=== PATIENT | female | born 1955 | race Caucasian/White ===

== ENCOUNTER 2023-08-29 10:21 | Emergency (ER) | payer MEDICARE, OTHER, SELFPAY ==
[2023-08-29 10:21] VITALS: BP 153/80; PULSE 77; RESP 16; TEMP 36; O2SAT 100; BMI 30.2
[2023-08-29 10:28] VITALS: BP 171/83; RESP 16; O2SAT 98
--- OUTSIDE RECORDS SUMMARY | 2023-08-29 10:35 | XMS RPT_ITS | CCD ---
Author Name Unknown Address [address] [place] [address] Organization [facility] Care Team Providers Care Evaluator Transfer Students Name Role Phone Jalen LOZANONLdBULMAROMolly Unavailable [phone] Tushar Caballero DO Primary Care Provider Tushar Caballero DO Primary Care Provider Tushar Caballero DO Primary Care Provider CAPLINGER SOLAR ENERGY SYSTEM INSTALLER~[id number], CAPXANDERER MEESHA P Att ending Unavailable CAPLINGER SOLAR ENERGY SYSTEM INSTALLER~[id number], CAPLISETTE MEESHA P Adm itting Unavailable MARTINEZ TUSHAR L Primary Care Unavailable TED FRY MD Consulting Unavailable [facility] ~[id number], [facility] Attending Unavailable [facility] ~[id number], [facility] Admitting Unavailable TUSHAR CABALLERO Primary Care Unavailable TED FRY MD Consulting Unavailable MARTINEZ, TUSHAR L Primary Care Unavailable ALESSANDRA LIMA Referring Unavailable MARTINEZ TUSHAR Carol Primary Care Unavailable ALESSANDRA LIMA Attending Unavailable TUSHAR CABALLERO Primary Care Unavailable TUSHAR CABALLERO Primary Care Unavailable NEHAL TOBIASON Attending Unavailable MARTINEZ TUSHAR L Primary Care Unavailable DENISE, NADEGE Referring Unavailable MARTINEZ TUSHAR L Primary Care Unavailable ALEKSANDR RHOADES Attending Unavailable TUSHAR CABALLERO Primary Care Unavailable ALEKSANDR RHOADES Referring Unavailable MARTINEZ, TUSHAR Carol Primary Care Unavailable ALEKSANDR RHOADES Attending Unavailable DENISE, NADEGE Referring Unavailable CABALLERO, TUSHAR L Primary Care Unavailable TOBIAS, NADEGE Referring Unavailable CABALLERO, TUSHAR L Primary Care Unavailable DENISE, NADEGE Attending Unavailable MARTINEZ, TUSHAR L Primary Care Unavailable MARTINEZ TUSHAR L Primary Care Unavailable MARTINEZ TUSHAR L Referring Unavailable Medications Current Medications Medication Drug Class(es) Dates Sig (Normalized) Sig (Original) iv contrast (will be provided with radiology test) (1 source) Start: 03-26-2023 End: 03-27-2023 iv contrast (will be provided with radiology test) CT Urogram WO/W Inject, intravenously, once for 1 dose.No IV access, insert saline lock prior to the beginning of sedation, infusion, injection of imaging exam. Discontinue saline lock post exam. If Pt. has a central line or IVAD, may access for administration according to line specific nursing protocol. Once exam is complete flush line and de-access according to line specific nursing protocol in the CT contrast administration guidelines link. 1 Each 0 03/26/2023 03/27/2023 Active Completed/Discontinued Medications Medication Drug Class(es) Dates Sig (Normalized) Sig (Original) amoxicillin 500 mg oral tablet (20 sources) Penicillin-class Antibacterial Start: 03-29-2019 take 4 tablets by mouth every hour AMOXICILLIN 500 MG TABS Take 4 tablets by mouth one hour prior to dental work AMOXICILLIN [id number] Molly Rao INTERNET CONSULTANT-SOLAR ENERGY SYSTEM INSTALLER Problems Active Problems Problem Classification Problem Date Documented Da te Episodic/Chronic Abdominal pain (1 source) Inguinal pain; Translations: [Right lower quadrant pain] 03-11-2023 Episodic Deficiency and other anemia (20 sources) Iron deficiency anemia; Translations: [Iron deficiency anemia, unspecified] 07-29-2021 Episodic Disorders of lipid metabolism (20 sources) Dyslipidemia; Translations: [Hyperlipidemia, unspecified] Onset: 05-22-2021 05-22-2021 Chronic Nutritional deficiencies (20 sources) Vitamin D deficiency; Translations: [Vitamin D deficiency, unspecified] Onset: 05-22-2021 05-22-2021 Chronic Osteoarthritis (20 sources) Degenerative joint disease involving multiple joints; Translations: [Polyosteoarthritis , unspecified] Onset: 07-06-2023 11-13-2011 Chronic Other aftercare (1 source) Other parts counterman (current) drug therapy; Translations: [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] Onset: 07-06-2023 Episodic Other connective tissue disease (20 sources) History of total hip arthroplasty; Translations: [Presence of right artificial hip joint] Onset: 08-07-2016 08-07-2016 Chronic Other connective tissue disease (2 sources) Heel pain; Translations: [Pain in left foot] Episodic Other connective tissue disease (1 source) Plantar fasciitis of left foot; Translations: [Plantar fascial fibromatosis] Episodic Other connective tissue disease (1 source) Plantar fasciitis; Translations: [Plantar fascial fibromatosis] 03-11-2023 Episodic Other nervous system disorders (2 sources) Paresthesia of lower extremity; Translations: [Anesthesia of skin] Episodic Other screening for suspected conditions (not mental disorders or infectious disease) (6 sources) Patient encounter status; Translations: [Encounter for screening mammogram for malignant neoplasm of breast] Onset: 04-29-2023 Episodic Prolapse of female genital organs (3 sources) Disorder of rectum; Translations: [Rectocele] Onset: 07-06-2023 04-20-2023 Chronic Thyroid disorders (20 sources) Non-toxic multinodular goiter; Translations: [Nontoxic multinodular goiter] Onset: 11-28-2011 11-28-2011 Chronic Past or Other Problems Problem Classification Problem Date Documented Date Episodic/Chronic Allergic reactions (20 sources) Contact dermatitis; Translations: [Unspecified contact dermatitis, unspecified cause] Onset: 03-08-2008 03-08-2008 Episodic Calculus of urinary tract (20 sources) Kidney stone; Translations: [Calculus of kidney] Onset: 08-22-2008 08-22-2008 Episodic Diabetes mellitus without complication (20 sources) Prediabetes; Translations: [Prediabetes] Onset: 06-10-2019 06-10-2019 Episodic Genitourinary symptoms and ill-defined conditions (20 sources) Microscopic hematuria; Translations: [Other microscopic hematuria] Onset: 06-06-2008 06-06-2008 Episodic Other connective tissue disease (1 source) Calcific tendinitis of shoulder; Translations: [Calcific tendinitis of right shoulder] Onset: 03-29-2019 03-29-2019 Episodic Other connective tissue disease (20 sources) Trochanteric bursitis of right hip; Translations: [Trochanteric bursitis, right hip] Onset: 06-12-2020 06-12-2020 Episodic Other nutritional; endocrine; and metabolic disorders (20 sources) H/O: nutritional disorder; Translations: [Personal history of other endocrine, nutritional and metabolic disease] Onset: 05-22-2021 05-22-2021 Episodic Residual codes; unclassified (20 sources) Postmenopausal state; Translations: [Asymptomatic menopausal state] Onset: 11-12-2018 11-12-2018 Episodic Unclassified (1 source) Problem Urinary tract infections (20 sources) Urethritis; Translations: [Other urethritis] Onset: 08-22-2008 08-22-2008 Episodic Results Test Name Value Interpretation Reference Range Facil ity Vital Signs Date Time Vital Sign Value Performing Clinician Facility 04-20-2023 09:27-0400 Body height 166.4 cm Aleksandr Rhoades MD Work Phone: [facility] 04-20-2023 09:27-0400 Body weight 78.47 kg Aleksandr Rhoades MD Work Phone: [facility] 04-20-2023 09:27-0400 Diastolic blood pressure 78 mm[Hg] Aleksandr Rhoades MD Work Phone: [facility] 04-20-2023 09:27-0400 Heart rate 83 /min Aleksandr Rhoades MD Work Phone: [facility] 04-20-2023 09:27-0400 Respiratory rate 18 /min Aleksandr Rhoades MD Work Phone: [facility] 04-20-2023 09:27-0400 Systolic blood pressure 114 mm[Hg] Aleksandr Rhoades MD Work Phone: [facility] 03-26-2023 13:32-0400 Body height 166.4 cm Aleksandr Rhoades MD Work Phone: [facility] 03-26-2023 13:32-0400 Body weight 78.02 kg Aleksandr Rhoades MD Work Phone: [facility] 03-11-2023 14:45-0400 Body height 167 cm Nadege Tobias INTERNET CONSULTANT.SOLAR ENERGY SYSTEM INSTALLER Work Phone: [facility] 03-11-2023 14:45-0400 Body weight 77.38 kg Nadege Tobias INTERNET CONSULTANT.SOLAR ENERGY SYSTEM INSTALLER Work Phone: [facility] 03-11-2023 14:45-0400 Diastolic blood pressure 60 mm[Hg] Nadege Tobias INTERNET CONSULTANT.SOLAR ENERGY SYSTEM INSTALLER Work Phone: [facility] 03-11-2023 14:45-0400 Heart rate 80 /min Nadege Tobias INTERNET CONSULTANT.SOLAR ENERGY SYSTEM INSTALLER Work Phone: [facility] 03-11-2023 14:45-0400 Respiratory rate 14 /min Nadege Tobias INTERNET CONSULTANT.SOLAR ENERGY SYSTEM INSTALLER Work Phone: [facility] 03-11-2023 14:45-0400 Systolic blood pressure 104 mm[Hg] Nadege Tobias INTERNET CONSULTANT.SOLAR ENERGY SYSTEM INSTALLER Work Phone: [facility] 02-19-2023 09:57-0400 Body weight 77.56 kg Alessandra Tannhof INTERNET CONSULTANT.SOLAR ENERGY SYSTEM INSTALLER Work Phone: [facility] 02-19-2023 09:57-0400 Diastolic blood pressure 58 mm[Hg] Alessandra Tannhof INTERNET CONSULTANT.SOLAR ENERGY SYSTEM INSTALLER Work Phone: [facility] 02-19-2023 09:57-0400 Heart rate 84 /min Alessandra Tannhof INTERNET CONSULTANT.SOLAR ENERGY SYSTEM INSTALLER Work Phone: [facility] 02-19-2023 09:57-0400 Respiratory rate 16 /min Alessandra Tannhof INTERNET CONSULTANT.SOLAR ENERGY SYSTEM INSTALLER Work Phone: [facility] 02-19-2023 09:57-0400 SaO2% (BldA) [Mass fraction] 97 % Alessandra Tannhof INTERNET CONSULTANT.SOLAR ENERGY SYSTEM INSTALLER Work Phone: [facility] 02-19-2023 09:57-0400 Systolic blood pressure 108 mm[Hg] Alessandra Tannhof INTERNET CONSULTANT.SOLAR ENERGY SYSTEM INSTALLER Work Phone: [facility] 01-26-2023 07:23-0400 Body temperature 97 [degF] Maine Cerrato INTERNET CONSULTANT.SOLAR ENERGY SYSTEM INSTALLER Work Phone: [facility] 01-26-2023 07:23-0400 Body weight 77.29 kg Maine Cerrato INTERNET CONSULTANT.SOLAR ENERGY SYSTEM INSTALLER Work Phone: [facility] 01-26-2023 07:23-0400 Diastolic blood pressure 72 mm[Hg] Maine Cerrato INTERNET CONSULTANT.SOLAR ENERGY SYSTEM INSTALLER Work Phone: [facility] 01-26-2023 07:23-0400 Heart rate 83 /min Maine Cerrato INTERNET CONSULTANT.SOLAR ENERGY SYSTEM INSTALLER Work Phone: [facility] 01-26-2023 07:23-0400 Respiratory rate 21 /min Maine Cerrato INTERNET CONSULTANT.SOLAR ENERGY SYSTEM INSTALLER Work Phone: [facility] 01-26-2023 07:23-0400 SaO2% (BldA) [Mass fraction] 98 % Maine Cerrato INTERNET CONSULTANT.SOLAR ENERGY SYSTEM INSTALLER Work Phone: [facility] 01-26-2023 07:23-0400 Systolic blood pressure 116 mm[Hg] Maine Cerrato INTERNET CONSULTANT.SOLAR ENERGY SYSTEM INSTALLER Work Phone: [facility] 01-20-2023 16:14-0400 Body temperature 97.5 [degF] Hilary Athy PA-C Work Phone: [facility] 01-20-2023 16:14-0400 Body weight 77.56 kg Hilary Athy PA-C Work Phone: [facility] 01-20-2023 16:14-0400 Diastolic blood pressure 86 mm[Hg] Hilary Athy PA-C Work Phone: [facility] 01-20-2023 16:14-0400 Heart rate 78 /min Hilary Athy PA-C Work Phone: [facility] 01-20-2023 16:14-0400 Respiratory rate 14 /min Hilary Athy PA-C Work Phone: [facility] 01-20-2023 16:14-0400 Systolic blood pressure 134 mm[Hg] Hilary Athy PA-C Work Phone: [facility] NEGATED: Highlighted [id number] 11:24-0400 BMI (Body Mass Index) 26.55 kg/m2 Desire Luis CENTERLESS GRINDER [facility] Work Phone: NEGATED: Highlighted [id number] 11:24-0400 Body weight 72.12 kg Desire Luis CENTERLESS GRINDER [facility] Work Phone: NEGATED: Highlighted [id number] 11:24-0400 Body weight 72 kg Desire Luis CENTERLESS GRINDER [facility] Work Phone: NEGATED: Highlighted [id number] 11:24-0400 BP Diastolic 73 mm[Hg] Desire Luis CENTERLESS GRINDER [facility] Work Phone: NEGATED: Highlighted [id number] 11:24-0400 BP Systolic 139 mm[Hg] Desire Luis CENTERLESS GRINDER [facility] Work Phone: NEGATED: Highlighted [id number] 11:24-0400 Height 165.1 cm Desire Luis CENTERLESS GRINDER [facility] Work Phone: NEGATED: Highlighted [id number] 11:24-0400 Height 165 cm Desire Luis CENTERLESS GRINDER [facility] Work Phone: NEGATED: Highlighted [id number] 11:24-0400 Pulse (Heart Rate) 76 /min Desire Luis CENTERLESS GRINDER [facility] Work Phone: Encounters Encounter Date Encounter Type Care Provider Facility Start: 07-20-2023 End: 07-20-2023 ambulatory NADEGE TOBIAS Facility:[facility] Start: 07-20-2023 End: 07-20-2023 Patient encounter procedure Nadege Tobias APRN.SOLAR ENERGY SYSTEM INSTALLER Work Phone: [facility] Procedures Date Procedure Procedure Detail Performing Clinician Start: 07-20-2023 INFLUENZA VACCINE, P RSV FREE, AGE 65+ YR, HIGH DOSE, QUADRIVALENT (FLUZONE HIGH-DOSE) Nadege Tobias APRN.SOLAR ENERGY SYSTEM INSTALLER Work Phone: Start: 04-29-2023 Screening mammograph y bi 2-view breast inc cad Nadege Tobias APRN.SOLAR ENERGY SYSTEM INSTALLER Work Phone: Start: 04-20-2023 Urnls dip stick/tabl et rgnt auto w/o microscopy Aleksandr Rhoades MD Work Phone: Start: 04-01-2023 Ct abdomen & pelvis w/o contrst 1/> body re Aleksandr Rhoades MD Work Phone: Start: 03-26-2023 Urnls dip stick/tabl et rgnt auto w/o microscopy Aleksandr Rhoades MD Work Phone: Start: 03-07-2023 Lipid 1996 panel - S yael or Plasma Aleksandr Rhoades MD Work Phone: Start: 02-19-2023 Urnls dip stick/tabl et rgnt auto w/o microscopy Alessandra Lima INTERNET CONSULTANT.SOLAR ENERGY SYSTEM INSTALLER Work Phone: Start: 01-26-2023 Urnls dip stick/tabl et rgnt auto w/o microscopy [facility] Provider Start: 01-20-2023 Urnls dip stick/tabl et rgnt auto w/o microscopy Oumou Rich INTERNET CONSULTANT.SOLAR ENERGY SYSTEM INSTALLER Work Phone: Start: 04-14-2022 MORA SCREENING W RENEA Medina Martinez DO Work Phone: Start: 04-14-2022 Mammography Screen Wst r Start: 05-19-2021 Adult depression screening assessment Tushar Caballero DO Work Phone: Start: 04-10-2021 Mammography Tushar Chester risrose marie DO Work Phone: Start: 03-29-2019 End: 03-29-2019 Arthrocentesis aspir&/inj major jt/bursa w/o us Molly Rao APRN-SOLAR ENERGY SYSTEM INSTALLER Work Phone: Start: 03-29-2019 End: 03-29-2019 Blood pressure within normal parameters - no follow-up required Molly Rao INTERNET CONSULTANT-SOLAR ENERGY SYSTEM INSTALLER Work Phone: Start: 03-29-2019 End: 03-29-2019 BMI outside of normal parameters - no follow-up plan/reason not given Molly Rao INTERNET CONSULTANT-SOLAR ENERGY SYSTEM INSTALLER Work Phone: Start: 03-29-2019 End: 03-29-2019 Documentation of current medications Molly Rao INTERNET CONSULTANT-SOLAR ENERGY SYSTEM INSTALLER Work Phone: Start: 03-29-2019 End: 03-29-2019 Injection - triamcinolone acetonide 10 mg Molly Rao INTERNET CONSULTANT-SOLAR ENERGY SYSTEM INSTALLER Work Phone: Start: 03-29-2019 End: 03-29-2019 Pain assessment documented as positive - no follow-up/reason not given Molly Rao INTERNET CONSULTANT-SOLAR ENERGY SYSTEM INSTALLER Work Phone: Start: 03-29-2019 End: 03-29-2019 Tobacco non-user Molly Rao INTERNET CONSULTANT-SOLAR ENERGY SYSTEM INSTALLER Work Phone: Start: 10-07-2018 Colonoscopy Tushar boston DO Work Phone: NEGATED: Highlighted rowStart: 03-29-2019 End: 03-29-2019 Documentation of current medications Desire Luis CENTERLESS GRINDER Plan of Treatment Date Care Activity Detail Author Start: 05-17-2030 Urine microalbumin profile [facility] Start: 10-07-2028 Colonoscopy COLONOSCOPY [facility] Start: 10-07-2028 COLORECTAL CANCER SCREENING COLORECTAL CANCER SCREENING [facility] Start: 10-07-2028 Screening for malign ant neoplasm of colon [facility] Start: 03-07-2028 Lipid 1996 panel - S yael or Plasma Lipid Screening [facility] Start: 03-07-2028 Lipid panel Lipid Screening [facility] Start: 03-07-2028 LIPID SCREEN LIPID SCREEN [facility] Start: 10-25-2026 LIPID SCREEN LIPID SCREEN [facility] Start: 05-20-2026 LIPID SCREEN LIPID SCREEN [facility] Start: 03-06-2026 DIABETES SCREEN DIABETES SCREEN [facility] Start: 03-06-2026 Diabetes Screening Diabetes Screenin g [facility] Start: 10-25-2024 DIABETES SCREEN DIABETES SCREEN [facility] Start: 07-20-2024 Annual PCP Team Analog Ic Design Architect akira Disease Visit Annual PCP Team Chronic Disease Visit [facility] Start: 05-20-2024 DIABETES SCREEN DIABETES SCREEN [facility] Start: 04-29-2024 Mammography Mammogram Screening [facility] Start: 04-29-2024 Screening for malign ant neoplasm of breast Mammogram Screening [facility] Start: 08-09-2024 ANNUAL PCP TEAM SPORTS CENTRE MANAGER AKIRA DISEASE VISIT ANNUAL PCP TEAM CHRONIC DISEASE VISIT [facility] Start: 03-11-2024 COVID-19 VACCINE (4 - Pfizer series) COVID-19 VACCINE (4 - Pfizer series) [facility] Immunizations Immunization Date Immunization Notes Care Provider Anshul azevedo 07-20-2023 influenza (HD-IIV4) vaccine, age 65+ yr, high dose, quadrivalent, PF (FLUZONE HIGH-DOSE) Nadege Tobias INTERNET CONSULTANT.SOLAR ENERGY SYSTEM INSTALLER Work Phone: [facility] 08-24-2021 COVID-19 vaccine, ag e 12+ yr (PFIZER-BIONTECH - PURPLE TOP) Tushar Chesterrison DO Work Phone: [facility] 05-20-2021 influenza, high-dose , quadrivalent vaccine (FLUZONE HIGH DOSE QUADRIVALENT) Tushar Chesterrison DO Work Phone: [facility] Work Phone: 05-20-2021 influenza virus vacc ine, unspecified formulation Aleksandr Rhoades MD Work Phone: [facility] 11-22-2020 COVID-19 vaccine, ag e 12+ yr (PFIZER-BIONTECH - PURPLE TOP) Tushar Caballero DO Work Phone: [facility] 11-01-2020 COVID-19 vaccine, ag e 12+ yr (PFIZER-BIONTECH - PURPLE TOP) Tushar Caballero DO Work Phone: [facility] Work Phone: 08-09-2020 zoster vaccine recombinant Tushar Caballero DO Work Phone: [facility] Work Phone: 05-17-2020 influenza, injectabl e, quadrivalent, contains preservative Tushar Caballero DO Work Phone: [facility] Work Phone: 05-17-2020 pneumococcal polysaccharide vaccine, 23 valent Tushar Caballero DO Work Phone: [facility] Work Phone: 05-17-2020 tetanus toxoid, redu melissa diphtheria toxoid, and acellular pertussis vaccine, adsorbed Tushar Caballero DO Work Phone: [facility] Work Phone: 05-17-2020 zoster vaccine recombinant Tushar Caballero DO Work Phone: [facility] Work Phone: 06-08-2019 influenza, high dose seasonal, preservative-free Tushar Caballero DO Work Phone: [facility] 11-12-2018 pneumococcal conjuga te vaccine, 13 valent Tushar Caballero DO Work Phone: [facility] Work Phone: 05-22-2018 influenza, seasonal, injectable Tushar Caballero DO Work Phone: [facility] 05-20-2017 influenza, seasonal, injectable Tushar Caballero DO Work Phone: [facility] Work Phone: 07-08-2016 tetanus toxoid, redu melissa diphtheria toxoid, and acellular pertussis vaccine, adsorbed Tushar Caballero DO Work Phone: [facility] 07-17-2015 influenza, injectabl e, quadrivalent, contains preservative Tushar Caballero DO Work Phone: [facility] Work Phone: 08-04-2014 zoster vaccine, live Tushar Caballero DO Work Phone: [facility] 07-16-2012 influenza virus vacc ine, unspecified formulation Tushar Caballero DO Work Phone: [facility] 06-04-2010 influenza virus vacc ine, unspecified formulation Tushar Caballero DO Work Phone: [facility] Work Phone: 06-06-2008 influenza virus vacc ine, unspecified formulation Tushar Caballero DO Work Phone: [facility] 06-01-2006 influenza virus vacc ine, unspecified formulation Tushar Caballero DO Work Phone: [facility] Work Phone: 06-01-2006 pneumococcal polysaccharide vaccine, 23 valent Tushar Caballero DO Work Phone: [facility] Work Phone: 06-01-2006 tetanus toxoid, redu melissa diphtheria toxoid, and acellular pertussis vaccine, adsorbed Tushar Caballero DO Work Phone: [facility] Work Phone: Payers Date Payer Category Payer Medicare MEDICARE MEDICAR E A AND B [id number] 2018-Present [phone] [place] [address] Medicare [id number] 2018 Medicare MEDICARE MEDICAR E A AND B [id number] 2018-Present [phone] [place] [address] Medicare [id number] 2018 Unknown [id number] 2010 Unknown [id number] 1959 Medicare [id number] 1961 Medicare [id number] 1953 Unknown [id number] 1955 Unknown [id number] Social History Date Type Detail Facility Start: 11-17-2011 Tobacco smoking stat [facility] Never smoked tobacco [facility] Start: 05-20-2021 End: 04-20-2023 Alcohol intake Current non-drinker of alcohol (finding) [facility] Start: 05-19-2021 End: 10-25-2021 History SDOH Alcohol Frequency 1 [facility] Start: 05-19-2021 History SDOH Alcohol Std Drinks 98 [facility] Start: 05-19-2021 History SDOH Social Connections Phone 5 [facility] Start: 05-19-2021 End: 10-25-2021 History SDOH Social Connections Get Together 2 [facility] Start: 05-19-2021 History SDOH Social Connections [facility] 3 [facility] Start: 05-19-2021 History SDOH Physica l Activity MPS 7 [facility] Start: 05-19-2021 Education 15 [facility] Start: 1955 Sex Assigned At Female C [facility] Start: 10-15-2021 End: 01-27-2022 Exposure to SARS-CoV-2 (event) Not sure [facility] Start: 11-17-2011 Tobacco use and exposure Smokeless tobacco non-user [facility] Start: 02-18-2023 End: 03-11-2023 History of Social function [facility] Start: 02-18-2023 End: 03-11-2023 Social connection and isolation panel [facility] Do you belong to any clubs or organizations such as roman catholic groups, unions, fraternal or athletic groups, or school groups? Yes [facility] Are you now , , , , never or living with a partner? [facility] How often to you hav e a drink containing alcohol? Never [facility] How many standard drinks containing alcohol do you have on a typical day? Patient does not drink [facility] Do you feel stress - tense, restless, nervous, or anxious, or unable to sleep at night because your mind is troubled all the time - these days [OSQ] Only a little [facility] (I/We) worried kelin er (my/our) food would run out before (I/we) got money to buy more. Never true [facility] In the past 12 month s, was there a time when you were not able to pay the mortgage or rent on time? No [facility] Start: 06-10-2019 Gender identity Identifies as female gender (finding) [facility] NEGATED: Highlighted rowStart: 03-29-2019 End: 03-29-2019 Assertion Never smoker [facility] Work Phone: Medical Equipment Procedure Code Equipment Code Equipment Origin al Text Equipment Identifier Dates Shell 54mm E Hemispherical Tritanium Acetabular Solid Back Primary - [id number] Start: 06-02-2016 Head V40 32mm 0m m Offset Taper Biolox Delta Femoral Hip - [id number] Start: 06-02-2016 Liner 32mm 0d E X3 7.9mm Acetabular Hip - [id number] Start: 06-02-2016 Stem Accolade Ii 4 127d Femoral - [id number] Start: 06-02-2016 Clinical Notes 06-02-2016 to 04-30-2023 Letter - Coordinator, Mammography - 04/30/2023 9:54 AM Piedad Londono Mammo Tech - 04/29/2023 10:10 AM Janny Horn LPN - 04/20/2023 11:20 AM EDTPatient InstructionsPatient Instructions Note Date & Type Note Facility 04-30-2023 Miscellaneous Notes April 30, 2023 PID: [id number] Alfreda Padgett [address] [place] [address] Dear Ms. Padgett, We are pleased to inform you that the results of your recent breast imaging exam on 04/29/2023 are normal. Early detection of cancer is very important. We also understand recommendations regarding breast cancer screening are controversial. Please discuss with your primary care provider which strategy is best for you and whether a mammogram is right for you. Your imaging studies and report will be kept on file at [facility] as part of your permanent medical record and are available for your continuing care. Thank you for allowing us to help in meeting your health care needs. Sincerely, Dr. Rodriguez Interpreting Radiologist [facility] (Normal over 40) documented in this encounter [facility] 04-29-2023 Note HNO ID: [id number] Author: Piedad Blood Mammo Rosalva Service: ? Author Type: Senior Architect Type: Progress Notes Filed: 04/29/2023 10:28 AM Note Text: Radiology Service Progress Note PATIENT NAME: Alfreda Padgett DATE OF SERVICE: April 29, 2023 TIME: 10:17 AM PATIENT IDENTITY VERIFICATION COMPLETED USING TWO (2) IDENTIFIERS: Name and Date of confirmed by patient verbally. FALL SCREENING: Has the patient had 2 falls in the last year or 1 fall with injury or currently using an Ambulatory Assistive Device (Walker, Cane, Wheelchair, Crutches, etc.)? No PATIENT GENDER DATA: Female. status: : No status: NO. PATIENT RELEVANT IMPLANT DATA REVIEWED: Not Applicable RADIOLOGY DEPARTMENT: Mammography PERIPHERAL IV DATA: Not applicable SIGNED BY: Monica Porter April 29, 2023 10:17 AM [facility] 04-29-2023 History of Presen t illness Narrative Radiology Service Progress Note PATIENT NAME: Alfreda Padgett DATE OF SERVICE: April 29, 2023 TIME: 10:17 AM PATIENT IDENTITY VERIFICATION COMPLETED USING TWO (2) IDENTIFIERS: Name and Date of confirmed by patient verbally. FALL SCREENING: Has the patient had 2 falls in the last year or 1 fall with injury or currently using an Ambulatory Assistive Device (Walker, Cane, Wheelchair, Crutches, etc.)? No PATIENT GENDER DATA: Female. status: : No status: NO. PATIENT RELEVANT IMPLANT DATA REVIEWED: Not Applicable RADIOLOGY DEPARTMENT: Mammography PERIPHERAL IV DATA: Not applicable SIGNED BY: Monica Porter April 29, 2023 10:17 AM documented in this encounter [facility] 04-20-2023 Note HNO ID: [id number] Author: Aleksandr Rhoades MD Service: ? Author Type: Fellow Type: Procedures Filed: 04/20/2023 10:18 AM Note Text: [facility] Patient presents with hematuria gross for cystoscopy. Epic notes reviewed: 67 year old female with PMHx of nephrolithiasis, microscopic hematuria, dyslipidemia, seen for gross hematuria and recurrent UTI. Several months ago, had an episode of painless gross hematuria. Occasional mild dysuria noted as well. Has had multiple urine cultures, with E coli on 3 of the 5, and mixed microbes on the last two. UAs with blood, but not nitrite positive, usually not appearing infected. Multiple courses of antibiotics with no change in her symptoms. Noted to have stones on prior CT in 2007, but has never been symptomatic or required intervention. Never passed stones. Non-smoker. Interval history: No further gross hematuria. No flank pain. Does have some burning discomfort in the vagina occasionally. Stage II rectocele noted today. Does endorse some splinting with BMs. CT Urogram 04/01/2023 IMPRESSION: Bilateral renal cysts and additional subcentimeter low density foci which are too small to characterize with certainty and likely represent additional cysts Bilateral nephrolithiasis. No suspicious renal lesion or gross obstructive uropathy Cytology: A - URINE VOIDED Negative for high-grade urothelial carcinoma. Mixed acute and chronic inflammation and possible bacterial organisms. Red blood cells present. Pt ID verified with patient: Yes Procedure verified with patient: Yes Procedure confirmed with physician and office support: Yes UNIVERSAL PROTOCOL / SAFETY CHECKLIST Procedure to be Performed: Cystoscopy Sign In: A Moment of CARE was completed. Personnel directly involved with the procedure wore the appropriate PPE (Personal Protective Equipment). Patient/Surrogate Stated/Verified: PATIENT VERIFIED(optional for EMERGENT procedures): Patient name, Date of , Relevant allergies, and The intended procedure Time Out Communication: Intended patient and procedure match the source documents. Consent documented and matches the intended procedure. Sign Out: SIGN OUT (optional for EMERGENT procedures): No specimen collected. Aleksandr Rhoades MD CYSTOSCOPY PROCEDURE NOTE: A urinalysis was performed revealing no evidence of infection. Antibiotics: Keflex 500 mg The benefits, risks, alternatives of the cystoscopy procedure and personnel were discussed with the patient. The verbal consent was obtained and the patient agrees to proceed. Procedure: A radial drill operator was present for the visit. The patient was placed on the procedure table in the supine position and prepped and draped in the usual sterile fashion. 2% Lidocaine Jelly was placed per urethra as an anesthetic in the standard fashion. Once adequate local anesthesia was achieved, the tip of the flexible cystoscope was carefully placed into the urethra under direct visual guidance. Urethra: Normal Bladder: no stones, no tumors, no lesions, both ureteral orifices seen At the conclusion of the procedure, the flexible cystoscope was removed atraumatically. The patient tolerated the procedure without complications. Pelvic Exam: Stage II rectocele noted on exam. Patient was given standard post-procedure instructions, and was directed to complete the course of oral antibiotics and increase oral fluid intake as directed. ASSESSMENT/PLAN: 1. Gross hematuria - ICD9: 599.71, ICD10: R31.0 (primary diagnosis) 2. Recurrent UTI (urinary tract infection) - ICD9: 599.0, ICD10: N39.0 3. Nephrolithiasis - ICD9: 592.0, ICD10: N20.0 4. Rectocele - ICD9: 618.04, ICD10: N81.6 Gross hematuria workup negative, other than non-obstructive nephrolithiasis Elected to observe stones, does not want imaging unless symptoms develop Discussed starting Estrace cream Referral to Urogynecology for rectocele, Stage II Aleksandr Rhoades MD [facility] 04-20-2023 Nurse Note AMBULATORY CYSTOSCOPY PROCEDURE PREOPERATIVE/PROCEDURAL VERIFICATION: Patient verified by: Name and Date of UNIVERSAL PROTOCOL / SAFETY CHECKLIST Procedure to be Performed: Cystoscopy Sign In: A Moment of CARE was completed. Personnel directly involved with the procedure wore the appropriate PPE (Personal Protective Equipment). Patient/Surrogate Stated/Verified: PATIENT VERIFIED(optional for EMERGENT procedures): Patient name, Date of , Relevant allergies, and The intended procedure Time Out Communication: Intended patient and procedure match the source documents. Consent documented and matches the intended procedure. Sign Out: SIGN OUT (optional for EMERGENT procedures): No specimen collected. Janny Carter LPN Medications and allergies reviewed and updated. Latex Allergy:No Pre-Procedure Antibiotics: Keflex 500 mg orally given during visit @ 9:32 , by Janny Carter Pre-Procedure Vital Signs: BP BP 114/78 Pulse 83 Resp 18 Ht 166.4 cm (5' 5.5 ) Wt 78.5 kg (173 lb) LMP 01/22/2005 (LMP Unknown) BMI 28.35 kg/m . Current pain intensity is 0 on a scale of 0-10. Patient Prepped with Betadine Scrub to perineum and placement of sterile drape. Anesthetic Given: 6 cc 2% Lidocaine Jelly into Urethra. Instruction sheet given and reviewed: Yes Patient verbalizes understanding: Yes Post- procedure Vital Signs: B/P: 121/74 P: 76 R:18 Pain Ratin on a scale of 0 to 10. Specimens: obtained: Urine dip Nurse: Janny Carter LPN documented in this encounter [facility] 04-20-2023 Procedure note [facility] Patient presents with hematuria gross for cystoscopy. Epic notes reviewed: 67 year old female with PMHx of nephrolithiasis, microscopic hematuria, dyslipidemia, seen for gross hematuria and recurrent UTI. Several months ago, had an episode of painless gross hematuria. Occasional mild dysuria noted as well. Has had multiple urine cultures, with E coli on 3 of the 5, and mixed microbes on the last two. UAs with blood, but not nitrite positive, usually not appearing infected. Multiple courses of antibiotics with no change in her symptoms. Noted to have stones on prior CT in 2007, but has never been symptomatic or required intervention. Never passed stones. Non-smoker. Interval history: No further gross hematuria. No flank pain. Does have some burning discomfort in the vagina occasionally. Stage II rectocele noted today. Does endorse some splinting with BMs. CT Urogram 04/01/2023 IMPRESSION: Bilateral renal cysts and additional subcentimeter low density foci which are too small to characterize with certainty and likely represent additional cysts Bilateral nephrolithiasis. No suspicious renal lesion or gross obstructive uropathy Cytology: A - URINE VOIDED Negative for high-grade urothelial carcinoma. Mixed acute and chronic inflammation and possible bacterial organisms. Red blood cells present. Pt ID verified with patient: Yes Procedure verified with patient: Yes Procedure confirmed with physician and office support: Yes UNIVERSAL PROTOCOL / SAFETY CHECKLIST Procedure to be Performed: Cystoscopy Sign In: A Moment of CARE was completed. Personnel directly involved with the procedure wore the appropriate PPE (Personal Protective Equipment). Patient/Surrogate Stated/Verified: PATIENT VERIFIED(optional for EMERGENT procedures): Patient name, Date of , Relevant allergies, and The intended procedure Time Out Communication: Intended patient and procedure match the source documents. Consent documented and matches the intended procedure. Sign Out: SIGN OUT (optional for EMERGENT procedures): No specimen collected. Aleksandr Rhoades MD CYSTOSCOPY PROCEDURE NOTE: A urinalysis was performed revealing no evidence of infection. Antibiotics: Keflex 500 mg The benefits, risks, alternatives of the cystoscopy procedure and personnel were discussed with the patient. The verbal consent was obtained and the patient agrees to proceed. Procedure: A radial drill operator was present for the visit. The patient was placed on the procedure table in the supine position and prepped and draped in the usual sterile fashion. 2% Lidocaine Jelly was placed per urethra as an anesthetic in the standard fashion. Once adequate local anesthesia was achieved, the tip of the flexible cystoscope was carefully placed into the urethra under direct visual guidance. Urethra: Normal Bladder: no stones, no tumors, no lesions, both ureteral orifices seen At the conclusion of the procedure, the flexible cystoscope was removed atraumatically. The patient tolerated the procedure without complications. Pelvic Exam: Stage II rectocele noted on exam. Patient was given standard post-procedure instructions, and was directed to complete the course of oral antibiotics and increase oral fluid intake as directed. ASSESSMENT/PLAN: 1. Gross hematuria - ICD9: 599.71, ICD10: R31.0 (primary diagnosis) 2. Recurrent UTI (urinary tract infection) - ICD9: 599.0, ICD10: N39.0 3. Nephrolithiasis - ICD9: 592.0, ICD10: N20.0 4. Rectocele - ICD9: 618.04, ICD10: N81.6 Gross hematuria workup negative, other than non-obstructive nephrolithiasis Elected to observe stones, does not want imaging unless symptoms develop Discussed starting Estrace cream Referral to Urogynecology for rectocele, Stage II Aleksandr Rhoades MD documented in this encounter [facility] 04-20-2023 Instructions Aleksandr Rohades MD - 04/20/2023 9:24 AM EDT [facility] Department of Urology After your Cystoscopy You have undergone a cystoscopy. Your doctor has inserted a telescope into your urinary bladder through your urethra to view the inside of your bladder. WHAT TO EXPECT: Possible burning during urination and /or blood tinged urine. WHAT TO DO: Resume normal activity and medications. Drink 6-8 glasses of fluid each day for 3 days to help flush your urinary system. MEDICATIONS: You were given keflex, a preventative antibiotic, prior to the procedure. WHEN TO CALL DOCTOR: IF you have a fever over 100 degrees Farenheit. IF you are unable to urinate IF blood clots form in your urine IF your urine becomes very bloody and does not clear with drinking extra fluids. Please call [facility] office at [phone] M-F 8:00 am to 5:00pm With any questions you may have and ask for the Triage Nurse After 5:00 pm or weekends [phone] Thank you 06/08/13 KW documented in this encounter [facility] 04-01-2023 Note HNO ID: [id number] Author: Bailey Travis RT(R) Service: ? Author Type: Senior Architect Type: Progress Notes Filed: 04/01/2023 3:30 PM Note Text: Radiology Service Progress Note DATE OF SERVICE: April 01, 2023 TIME: 3:29 PM PATIENT IDENTITY VERIFICATION COMPLETED USING TWO (2) STANDARD IDENTIFIERS: Name and Date of confirmed by patient verbally. FALL SCREENING: Has the patient had 2 falls in the last year or 1 fall with injury or currently using an Ambulatory Assistive Device (Walker, Cane, Wheelchair, Crutches, etc.)? No PATIENT GENDER DATA: Female. status: : No status: NO. PATIENT RELEVANT IMPLANT DATA REVIEWED: Yes ALLERGIES: Reviewed and unchanged CONTRAST ALLERGY: NO. EXAM: CT -CONTRAST INDUCED NEPHROPATHY RISK FACTORS: Patient age > 60 years CREATININE: Creatinine Date Value Ref Range Status 03/06/2023 0.69 0.58 - 0.96 mg/dL Final 10/25/2021 0.62 0.58 - 0.96 mg/dL Final 05/20/2021 0.73 0.58 - 0.96 mg/dL Final Estimated Glomerular Filtration Rate Date Value Ref Range Status 03/06/2023 94 >=60 mL/min/1.73m? Final Comment: Estimated Glomerular Filtration Rate (eGFR) is calculated using the 2020 CKD-EPI creatinine equation. This equation utilizes serum creatinine, sex, and age as parameters. The creatinine assay has traceable calibration to isotope dilution-mass spectrometry. Refer to KDIGO guidelines for clinical interpretation. In patients with unstable renal function, e.g. those with acute kidney injury, the eGFR may not accurately reflect actual GFR. eGFR- Date Value Ref Range Status 05/20/2021 >60 Final P.O.C.T. RESULTS: POC done: Yes, See Lab Tab April 01, 2023 TREATMENT: N/A PERIPHERAL IV DATA: Ambulatory: A peripheral IV was started in the Left antecubital site with a Angio cath: 22 gauge. RADIOLOGY DEPARTMENT: CT; Exam(s) Completed: urogram SIGNATURE: RT Angy(R) PATIENT NAME: Alfreda Padgett DATE: April 01, 2023 TIME: 3:29 PM [facility] 04-01-2023 History of Presen t illness Narrative Radiology Service Progress Note DATE OF SERVICE: April 01, 2023 TIME: 3:29 PM PATIENT IDENTITY VERIFICATION COMPLETED USING TWO (2) STANDARD IDENTIFIERS: Name and Date of confirmed by patient verbally. FALL SCREENING: Has the patient had 2 falls in the last year or 1 fall with injury or currently using an Ambulatory Assistive Device (Walker, Cane, Wheelchair, Crutches, etc.)? No PATIENT GENDER DATA: Female. status: : No status: NO. PATIENT RELEVANT IMPLANT DATA REVIEWED: Yes ALLERGIES: Reviewed and unchanged CONTRAST ALLERGY: NO. EXAM: CT -CONTRAST INDUCED NEPHROPATHY RISK FACTORS: Patient age > 60 years CREATININE: Creatinine Date Value Ref Range Status 03/06/2023 0.69 0.58 - 0.96 mg/dL Final 10/25/2021 0.62 0.58 - 0.96 mg/dL Final 05/20/2021 0.73 0.58 - 0.96 mg/dL Final Estimated Glomerular Filtration Rate Date Value Ref Range Status 03/06/2023 94 >=60 mL/min/1.73m Final Comment: Estimated Glomerular Filtration Rate (eGFR) is calculated using the 2020 CKD-EPI creatinine equation. This equation utilizes serum creatinine, sex, and age as parameters. The creatinine assay has traceable calibration to isotope dilution-mass spectrometry. Refer to KDIGO guidelines for clinical interpretation. In patients with unstable renal function, e.g. those with acute kidney injury, the eGFR may not accurately reflect actual GFR. eGFR- Date Value Ref Range Status 05/20/2021 >60 Final P.O.C.T. RESULTS: POC done: Yes, See Lab Tab April 01, 2023 TREATMENT: N/A PERIPHERAL IV DATA: Ambulatory: A peripheral IV was started in the Left antecubital site with a Angio cath: 22 gauge. RADIOLOGY DEPARTMENT: CT; Exam(s) Completed: urogram SIGNATURE: RT Angy(R) PATIENT NAME: Alfreda Padgett DATE: April 01, 2023 TIME: 3:29 PM documented in this encounter [facility] 03-26-2023 Note HNO ID: [id number] Author: Aleksandr Rhoades MD Service: ? Author Type: Fellow Type: Progress Notes Filed: 03/26/2023 3:29 PM Note Text: [facility] Patient: Alfreda Padgett Provider: Aleksandr Rhoades MD : 1955 Location: [facility] 6th Floor Date of Service: 03/26/2023 PCP: Tushar Caballero DO Consultation requested by Nadege Tobias APRN.CNP for an opinion regarding UTIs. My final recommendations will be communicated back to the requesting physician by way of shared Medical record or letter to requesting physician via US mail. ASSESSMENT: 1. Gross hematuria - ICD9: 599.71, ICD10: R31.0 (primary diagnosis) 2. Recurrent UTI (urinary tract infection) - ICD9: 599.0, ICD10: N39.0 3. History of nephrolithiasis - ICD9: V13.01, ICD10: Z87.442 PLAN: - Plan for cystoscopy, CT Urogram to assess source of hematuria - CT will also assess current stone burden - stones last [place] [address] No reported stone episodes - Send urine for cytology Aleksandr Rhoades MD Medical Decision Making: Problems: Moderate: New problem with uncertain prognosis Data: Unique test(s) ordered: 3+ Risk: Low: Low risk from testing/treatment Medical Decision Making Level: 4 - Moderate HPI: Alfreda Padgett is a 67 year old year old female with PMHx of nephrolithiasis, microscopic hematuria, dyslipidemia who is being seen for gross hematuria, UTI. Several months ago, had an episode of painless gross hematuria. Occasional mild dysuria noted as well. Has had multiple urine cultures, with E coli on 3 of the 5, and mixed microbes on the last two. UAs with blood, but not nitrite positive, usually not appearing infected. Multiple courses of antibiotics with no change in her symptoms. Noted to have stones on prior CT in 2007, but has never been symptomatic or required intervention. Never passed stones. Non-smoker. OTHER UROLOGIC HISTORY: - Kidney/Bladder/Prostate/Testis cancer: No REVIEW OF SYSTEMS: A ROS was performed and pertinent negatives and positives can be found in the HPI. RELEVANT IMAGING STUDIES (most recent): No recent imaging LABS/INVESTIGATIONS: Urine Chemstrip: moderate Hgb, small LE Creatinine Date Value Ref Range Status 03/06/2023 0.69 0.58 - 0.96 mg/dL Final 10/25/2021 0.62 0.58 - 0.96 mg/dL Final 05/20/2021 0.73 0.58 - 0.96 mg/dL Final 06/08/2019 0.62 0.58 - 0.96 mg/dL Final Hemoglobin (g/dL) Date Value 03/06/2023 12.2 05/20/2021 13.0 Hematocrit (%) Date Value 03/06/2023 35.7 05/20/2021 38.1 WBC (k/uL) Date Value 03/06/2023 8.29 05/20/2021 6.77 HISTORIES FAMILY HISTORY Problem Relation Age of Onset Stroke Mother Arthritis Mother Stroke Paternal Grandfather AND DIABETES Diabetes Paternal Grandfather Diabetes Paternal Grandmother Hypertension Brother Hypertension Brother PAST MEDICAL HISTORY Diagnosis Date Broken finger right pinky finger Eczema Hypothyroidism, iatrogenic s/p thryoidectomy for MNG Iron deficiency anemia, unspecified pre-menopausal Multinodular goiter (nontoxic) Osteoarthritis, generalized Plantar fasciitis PAST SURGICAL HISTORY Procedure Laterality Date ADENOIDECTOMY PRIMARY Adenoidectomy ARTHRP ACETBLR/PROX FEM PROSTC AGRFT/ALGRFT Right 06/02/2016 Hip replacement, total BLEPHAROPLASTY UPPER EYELID 04/2008 Blepharoplasty, upper-bilateral COLONOSCOPY AND POLYPECTOMY [id number] Dr Nascimento- repeat due 2018 COLONOSCOPY FLX DX W/COLLJ SPEC WHEN PFRMD 12/10/01 Repeat in COLONOSCOPY FLX DX W/COLLJ SPEC WHEN PFRMD 10/07/2018 Colonoscopy CORRECT BUNION,SIMPLE 1996 BUNIONECTOMY bilateral DILATION AND CURETTAGE DXAND/THER NONOBSTETRIC Dilation AND curettage LIG/TRNSXJ FLP TUBE ABDL/VAG APPR UNI/BI 1995 Tubal ligation BILATERAL NEUROPLASTY AND/TRANSPOS MEDIAN NRV CARPAL TUNNE 06/2009 Carpal tunnel decomp bilaterally done @ [facility] PAST SURGICAL HISTORY OF 1979 OPENED RIGHT OVARIAN CYST PAST SURGICAL HISTORY OF 11/2008 foot and toe PAST SURGICAL HISTORY OF 2010 left trigger thumb THYROIDECTOMY TOTAL/COMPLETE 10-22-12 total for nodules/no cancer TONSILLECTOMY PRIMARY/SECONDARY Tonsillectomy Social History Tobacco Use Smoking status: Never Smokeless tobacco: Never Substance Use Topics Alcohol use: No Drug use: No ALLERGIES No Known Allergies Current Outpatient Medications Medication Sig Dispense Refill calcium carbonate (CALTRATE) 600 mg calcium (1,500 mg) tab Take by mouth. multivitamin tablet Take 1 tablet by mouth. ascorbic acid, vitamin C, (VITAMIN C) 500 mg tablet Take 500 mg by mouth once daily. mv-mn/iron/folic acid/herb 190 (VITAMIN D3 COMPLETE ORAL) Take 1 capsule by mouth once daily. CRANBERRY Cranberry 400 mg cap Take 1 capsule by mouth once daily. levothyroxine (SYNTHROID) 112 mcg tablet Take 1 tablet by mo (more content not included)... [facility] 03-26-2023 History of Presen t illness Narrative [facility] Patient: Alfreda Padgett Provider: Aleksandr Rhoades MD : 1955 Location: [facility] [place] [facility] 6th Floor Date of Service: 03/26/2023 PCP: Tushar Caballero DO Consultation requested by Nadege Tobias APRN.CNP for an opinion regarding UTIs. My final recommendations will be communicated back to the requesting physician by way of shared Medical record or letter to requesting physician via US mail. ASSESSMENT: 1. Gross hematuria - ICD9: 599.71, ICD10: R31.0 (primary diagnosis) 2. Recurrent UTI (urinary tract infection) - ICD9: 599.0, ICD10: N39.0 3. History of nephrolithiasis - ICD9: V13.01, ICD10: Z87.442 PLAN: - Plan for cystoscopy, CT Urogram to assess source of hematuria - CT will also assess current stone burden - stones last [place] [address] No reported stone episodes - Send urine for cytology Aleksandr Rhoades MD Medical Decision Making: Problems: Moderate: New problem with uncertain prognosis Data: Unique test(s) ordered: 3+ Risk: Low: Low risk from testing/treatment Medical Decision Making Level: 4 - Moderate HPI: Alfreda Padgett is a 67 year old year old female with PMHx of nephrolithiasis, microscopic hematuria, dyslipidemia who is being seen for gross hematuria, UTI. Several months ago, had an episode of painless gross hematuria. Occasional mild dysuria noted as well. Has had multiple urine cultures, with E coli on 3 of the 5, and mixed microbes on the last two. UAs with blood, but not nitrite positive, usually not appearing infected. Multiple courses of antibiotics with no change in her symptoms. Noted to have stones on prior CT in 2007, but has never been symptomatic or required intervention. Never passed stones. Non-smoker. OTHER UROLOGIC HISTORY: - Kidney/Bladder/Prostate/Testis cancer: No REVIEW OF SYSTEMS: A ROS was performed and pertinent negatives and positives can be found in the HPI. RELEVANT IMAGING STUDIES (most recent): No recent imaging LABS/INVESTIGATIONS: Urine Chemstrip: moderate Hgb, small LE Creatinine Date Value Ref Range Status 03/06/2023 0.69 0.58 - 0.96 mg/dL Final 10/25/2021 0.62 0.58 - 0.96 mg/dL Final 05/20/2021 0.73 0.58 - 0.96 mg/dL Final 06/08/2019 0.62 0.58 - 0.96 mg/dL Final Hemoglobin (g/dL) Date Value 03/06/2023 12.2 05/20/2021 13.0 Hematocrit (%) Date Value 03/06/2023 35.7 05/20/2021 38.1 WBC (k/uL) Date Value 03/06/2023 8.29 05/20/2021 6.77 HISTORIES FAMILY HISTORY Problem Relation Age of Onset Stroke Mother Arthritis Mother Stroke Paternal Grandfather AND DIABETES Diabetes Paternal Grandfather Diabetes Paternal Grandmother Hypertension Brother Hypertension Brother PAST MEDICAL HISTORY Diagnosis Date Broken finger right pinky finger Eczema Hypothyroidism, iatrogenic s/p thryoidectomy for MNG Iron deficiency anemia, unspecified pre-menopausal Multinodular goiter (nontoxic) Osteoarthritis, generalized Plantar fasciitis PAST SURGICAL HISTORY Procedure Laterality Date ADENOIDECTOMY PRIMARY <AGE 10 remote Adenoidectomy ARTHRP ACETBLR/PROX FEM PROSTC AGRFT/ALGRFT Right 06/02/2016 Hip replacement, total BLEPHAROPLASTY UPPER EYELID 04/2008 Blepharoplasty, upper-bilateral COLONOSCOPY & POLYPECTOMY [id number] Dr Nascimento- repeat due 2018 COLONOSCOPY FLX DX W/COLLJ SPEC WHEN PFRMD 12/10/01 Repeat in COLONOSCOPY FLX DX W/COLLJ SPEC WHEN PFRMD 10/07/2018 Colonoscopy CORRECT BUNION,SIMPLE 1996 BUNIONECTOMY bilateral DILATION & CURETTAGE DX&/THER NONOBSTETRIC Dilation & curettage LIG/TRNSXJ FLP TUBE ABDL/VAG APPR UNI/BI 1995 Tubal ligation BILATERAL NEUROPLASTY &/TRANSPOS MEDIAN NRV CARPAL TUNNE 06/2009 Carpal tunnel decomp bilaterally done @ [facility] PAST SURGICAL HISTORY OF 1979 OPENED RIGHT OVARIAN CYST PAST SURGICAL HISTORY OF 11/2008 foot and toe PAST SURGICAL HISTORY OF 2010 left trigger thumb THYROIDECTOMY TOTAL/COMPLETE 10-22-12 total for nodules/no cancer TONSILLECTOMY PRIMARY/SECONDARY <AGE 10 remote Tonsillectomy Social History Tobacco Use Smoking status: Never Smokeless tobacco: Never Substance Use Topics Alcohol use: No Drug use: No ALLERGIES No Known Allergies Current Outpatient Medications Medication Sig Dispense Refill calcium carbonate (CALTRATE) 600 mg calcium (1,500 mg) tab Take by mouth. multivitamin tablet Take 1 tablet by mouth. ascorbic acid, vitamin C, (VITAMIN C) 500 mg tablet Take 500 mg by mouth once daily. mv-mn/iron/folic acid/herb 190 (VITAMIN D3 COMPLETE ORAL) Take 1 capsule by mouth once daily. CRANBERRY Cranberry 400 mg cap Take 1 capsule by mouth once daily. levothyroxine (SYNTHROID) 112 mcg tablet Take 1 tablet by mouth once daily. 90 tablet 3 THERAPEUTIC MULTIVITAMIN TAB Take one tablet daily 0 iv contrast (will be provided with radiology test) CT Urogram WO/W Inject, intravenously, once for 1 dose.No IV access, insert saline lock prior to the beginning of sedation, infusion, injection of imaging exam. Discontinue saline lock post exam. If Pt. has a central line or IVAD, may access for administration according to line specific nursing protocol. Once exam is complete flush line and de-access according to line specific nursing protocol in the CT contrast administration guidelines link. 1 Each 0 0.9 % sodium chloride (NACL 0.9%) infusion Inject 100 mL/hr intravenously one time only for 1 dose. Administer at rate defined per CT contrast administration specifications. To be provided with radiology test. 1 Each 0 No current facility-administered medications for this visit. PHYSICAL EXAMINATION: Vitals: Ht 166.4 cm (5' 5.5 ) Wt 78 kg (172 lb) LMP 01/22/2005 (LMP Unknown) BMI 28.19 kg/m BMI: Body mass index is 28.19 kg/m . Constitutional: Apparent distress -No Psych: Alert & oriented - Yes; : Deferred documented in this encounter [facility] 03-26-2023 Nurse Note Bladder scan obtained 0 ml of urine documented in this encounter [facility] 03-25-2023 Miscellaneous Notes Received a medical record request from [facility], faxed over the required information they were asking for. Eneida Davis Ma March 25, 2023 1:07 PM documented in this encounter [facility] 03-11-2023 Note HNO ID: [id number] Author: Nadege Tobias APRN.[employer] Service: ? Author Type: Nurse Practitioner Type: Progress Notes Filed: 03/11/2023 3:48 PM Note Text: Chief Complaint Patient presents with: Physical HPI Alfreda Padgett is a 67 year old female who presents here today for Above Complaints. Hypothyroidism-- Stable, well controlled on current regimen of synthroid 112 mcg Component Latest Ref Rng AND Units 03/06/2023 TSH 0.270 - 4.200 mIU/L 0.566 T3 79 - 165 ng/dL 95 Free T4 0.9 - 1.7 ng/dL 1.5 UTI--- Recurrent UTI. Not resolving since first urgent care visit on January 20. Has been prescribed macorbid, keflex and now bactrim as of 2 days ago. Symptoms resolved but urine culture remains +. Only symptoms was mild burning sensation on urination. Recent lab work WNL . Component Latest Ref Rng AND Units 03/06/2023 03/07/2023 Protein, Total 6.3 - 8.0 g/dL 6.7 Albumin 3.9 - 4.9 g/dL 4.3 Calcium 8.5 - 10.2 mg/dL 9.7 Bilirubin, Total 0.2 - 1.3 mg/dL 0.6 Alkaline Phosphatase 34 - 123 U/L 59 AST 13 - 35 U/L 28 ALT 7 - 38 U/L 31 Glucose 74 - 99 mg/dL 173 (H) BUN 7 - 21 mg/dL 13 Creatinine 0.58 - 0.96 mg/dL 0.69 Sodium 136 - 144 mmol/L 139 Potassium 3.7 - 5.1 mmol/L 4.0 Chloride 97 - 105 mmol/L 103 CO2 22 - 30 mmol/L 25 Anion Gap 9 - 18 mmol/L 11 eGFR >=60 mL/min/1.73mA? 94 WBC 3.70 - 11.00 k/uL 8.29 RBC 3.90 - 5.20 m/uL 3.94 Hemoglobin 11.5 - 15.5 g/dL 12.2 Hematocrit 36.0 - 46.0 % 35.7 (L) MCV 80.0 - 100.0 fL 90.6 MCH 26.0 - 34.0 pg 31.0 MCHC 30.5 - 36.0 g/dL 34.2 RDW-CV 11.5 - 15.0 % 12.6 Platelet Count 150 - 400 k/uL 309 MPV 9.0 - 12.7 fL 10.8 Absolute nRBC <0.01 k/uL <0.01 Cholesterol, Total <200 mg/dL 179 Triglyceride <150 mg/dL 102 HDL Cholesterol >39 mg/dL 66 Non HDL Cholesterol <130 mg/dL 113 Fasting Time hrs 12 VLDL Cholesterol <30 mg/dL 20 TC:HDL Ratio <5.10 2.71 LDL Cholesterol <100 mg/dL 93 LDL:HDL Ratio <2.54 1.41 Hemoglobin A1C 4.3 - 5.6 % 5.6 Estimated Average Glucose mg/dL 114 Vitamin D 25 Hydroxy 31.0 - 80.0 ng/mL 44.4 Bulge to R groin-- Sometimes will notice a fat bulge to RLQ abd /groin area when she bends down to put on socks or shoes. Discomfort for a minute then it goes back into place and subsides. Denies any changes in bowel/bladder habits. Denies discoloration to this area. Denies fevers/chills. Past medical history, appointments, medications, allergies reviewed. Previous Medical History PAST MEDICAL HISTORY Diagnosis Date Broken finger right pinky finger Eczema Hypothyroidism, iatrogenic s/p thryoidectomy for MNG Iron deficiency anemia, unspecified pre-menopausal Multinodular goiter (nontoxic) Osteoarthritis, generalized Plantar fasciitis Previous Surgical History PAST SURGICAL HISTORY Procedure Laterality Date ADENOIDECTOMY PRIMARY Adenoidectomy ARTHRP ACETBLR/PROX FEM PROSTC AGRFT/ALGRFT Right 06/02/2016 Hip replacement, total BLEPHAROPLASTY UPPER EYELID 04/2008 Blepharoplasty, upper-bilateral COLONOSCOPY AND POLYPECTOMY [id number] Dr Nascimento- repeat due 2019 COLONOSCOPY FLX DX W/COLLJ SPEC WHEN PFRMD 12/10/01 Repeat in COLONOSCOPY FLX DX W/COLLJ SPEC WHEN PFRMD 10/07/2018 Colonoscopy CORRECT BUNION,SIMPLE 1996 BUNIONECTOMY bilateral DILATION AND CURETTAGE DXAND/THER NONOBSTETRIC Dilation AND curettage LIG/TRNSXJ FLP TUBE ABDL/VAG APPR UNI/BI 1995 Tubal ligation BILATERAL NEUROPLASTY AND/TRANSPOS MEDIAN NRV CARPAL TUNNE 06/2009 Carpal tunnel decomp bilaterally done @ [facility] PAST SURGICAL HISTORY OF 1979 OPENED RIGHT OVARIAN CYST PAST SURGICAL HISTORY OF 11/2008 foot and toe PAST SURGICAL HISTORY OF 2010 left trigger thumb THYROIDECTOMY TOTAL/COMPLETE 10-22-12 total for nodules/no cancer TONSILLECTOMY PRIMARY/SECONDARY Tonsillectomy Family History FAMILY HISTORY Problem Relation Age of Onset Stroke Mother Arthritis Mother Stroke Paternal Grandfather AND DIABETES Diabetes Paternal Grandfather Diabetes Paternal Grandmother Hypertension Brother Hypertension Brother Patient Allergies ALLERGIES No Known Allergies Current Medications Current Outpatient Medications on File Prior to Visit Medication Sig sulfamethoxazole-trimethoprim (BACTRIM DS) 800-160 mg per tablet Take 1 tablet by mouth twice daily for 3 days. levothyroxine (SYNTHROID) 112 mcg tablet Take 1 tablet by mouth once daily. gabapentin (NEURONTIN) 100 mg capsule take 1 capsule by mouth at bedtime hydrocortisone 2.5 % cream Apply to affected area two times daily as needed for 1-2 weeks after 5% fluorouracil cream (Patient not taking: Reported on 11/04/2021 ) Fluorouracil (EFUDEX) 5 % cream Apply 2x daily to forehead and temples for 2 weeks. May stop for few days or decrease to once daily for discomfort (Patient not taking: Reported on 11/04/2021 ) diclofenac sodium (VOLTAREN) 1 % topical gel Apply 4 g to affected area four times daily. (more content not included)... [facility] 03-11-2023 History of Presen t illness Narrative Chief Complaint Patient presents with: Physical HPI Alfreda Padgett is a 67 year old female who presents here today for Above Complaints. Hypothyroidism-- Stable, well controlled on current regimen of synthroid 112 mcg Component Latest Ref Rng & Units 03/06/2023 TSH 0.270 - 4.200 mIU/L 0.566 T3 79 - 165 ng/dL 95 Free T4 0.9 - 1.7 ng/dL 1.5 UTI--- Recurrent UTI. Not resolving since first urgent care visit on January 20. Has been prescribed macorbid, keflex and now bactrim as of 2 days ago. Symptoms resolved but urine culture remains +. Only symptoms was mild burning sensation on urination. Recent lab work WNL . Component Latest Ref Rng & Units 03/06/2023 03/07/2023 Protein, Total 6.3 - 8.0 g/dL 6.7 Albumin 3.9 - 4.9 g/dL 4.3 Calcium 8.5 - 10.2 mg/dL 9.7 Bilirubin, Total 0.2 - 1.3 mg/dL 0.6 Alkaline Phosphatase 34 - 123 U/L 59 AST 13 - 35 U/L 28 ALT 7 - 38 U/L 31 Glucose 74 - 99 mg/dL 173 (H) BUN 7 - 21 mg/dL 13 Creatinine 0.58 - 0.96 mg/dL 0.69 Sodium 136 - 144 mmol/L 139 Potassium 3.7 - 5.1 mmol/L 4.0 Chloride 97 - 105 mmol/L 103 CO2 22 - 30 mmol/L 25 Anion Gap 9 - 18 mmol/L 11 eGFR >=60 mL/min/1.73m 94 WBC 3.70 - 11.00 k/uL 8.29 RBC 3.90 - 5.20 m/uL 3.94 Hemoglobin 11.5 - 15.5 g/dL 12.2 Hematocrit 36.0 - 46.0 % 35.7 (L) MCV 80.0 - 100.0 fL 90.6 MCH 26.0 - 34.0 pg 31.0 MCHC 30.5 - 36.0 g/dL 34.2 RDW-CV 11.5 - 15.0 % 12.6 Platelet Count 150 - 400 k/uL 309 MPV 9.0 - 12.7 fL 10.8 Absolute nRBC <0.01 k/uL <0.01 Cholesterol, Total <200 mg/dL 179 Triglyceride <150 mg/dL 102 HDL Cholesterol >39 mg/dL 66 Non HDL Cholesterol <130 mg/dL 113 Fasting Time hrs 12 VLDL Cholesterol <30 mg/dL 20 TC:HDL Ratio <5.10 2.71 LDL Cholesterol <100 mg/dL 93 LDL:HDL Ratio <2.54 1.41 Hemoglobin A1C 4.3 - 5.6 % 5.6 Estimated Average Glucose mg/dL 114 Vitamin D 25 Hydroxy 31.0 - 80.0 ng/mL 44.4 Bulge to R groin-- Sometimes will notice a fat bulge to RLQ abd /groin area when she bends down to put on socks or shoes. Discomfort for a minute then it goes back into place and subsides. Denies any changes in bowel/bladder habits. Denies discoloration to this area. Denies fevers/chills. Past medical history, appointments, medications, allergies reviewed. Previous Medical History PAST MEDICAL HISTORY Diagnosis Date Broken finger right pinky finger Eczema Hypothyroidism, iatrogenic s/p thryoidectomy for MNG Iron deficiency anemia, unspecified pre-menopausal Multinodular goiter (nontoxic) Osteoarthritis, generalized Plantar fasciitis Previous Surgical History PAST SURGICAL HISTORY Procedure Laterality Date ADENOIDECTOMY PRIMARY <AGE 10 remote Adenoidectomy ARTHRP ACETBLR/PROX FEM PROSTC AGRFT/ALGRFT Right 06/02/2016 Hip replacement, total BLEPHAROPLASTY UPPER EYELID 04/2008 Blepharoplasty, upper-bilateral COLONOSCOPY & POLYPECTOMY [id number] Dr Nascimento- repeat due 2018 COLONOSCOPY FLX DX W/COLLJ SPEC WHEN PFRMD 12/10/01 Repeat in COLONOSCOPY FLX DX W/COLLJ SPEC WHEN PFRMD 10/07/2018 Colonoscopy CORRECT BUNION,SIMPLE 1996 BUNIONECTOMY bilateral DILATION & CURETTAGE DX&/THER NONOBSTETRIC Dilation & curettage LIG/TRNSXJ FLP TUBE ABDL/VAG APPR UNI/BI 1995 Tubal ligation BILATERAL NEUROPLASTY &/TRANSPOS MEDIAN NRV CARPAL TUNNE 06/2009 Carpal tunnel decomp bilaterally done @ [facility] PAST SURGICAL HISTORY OF 1979 OPENED RIGHT OVARIAN CYST PAST SURGICAL HISTORY OF 11/2008 foot and toe PAST SURGICAL HISTORY OF 2010 left trigger thumb THYROIDECTOMY TOTAL/COMPLETE 10-22-12 total for nodules/no cancer TONSILLECTOMY PRIMARY/SECONDARY <AGE 10 remote Tonsillectomy Family History FAMILY HISTORY Problem Relation Age of Onset Stroke Mother Arthritis Mother Stroke Paternal Grandfather AND DIABETES Diabetes Paternal Grandfather Diabetes Paternal Grandmother Hypertension Brother Hypertension Brother Patient Allergies ALLERGIES No Known Allergies Current Medications Current Outpatient Medications on File Prior to Visit Medication Sig sulfamethoxazole-trimethoprim (BACTRIM DS) 800-160 mg per tablet Take 1 tablet by mouth twice daily for 3 days. levothyroxine (SYNTHROID) 112 mcg tablet Take 1 tablet by mouth once daily. gabapentin (NEURONTIN) 100 mg capsule take 1 capsule by mouth at bedtime hydrocortisone 2.5 % cream Apply to affected area two times daily as needed for 1-2 weeks after 5% fluorouracil cream (Patient not taking: Reported on 11/04/2021 ) Fluorouracil (EFUDEX) 5 % cream Apply 2x daily to forehead and temples for 2 weeks. May stop for few days or decrease to once daily for discomfort (Patient not taking: Reported on 11/04/2021 ) diclofenac sodium (VOLTAREN) 1 % topical gel Apply 4 g to affected area four times daily. ergocalciferol, vitamin D2, (VITAMIN D2 ORAL) Take by mouth. TURMERIC ORAL Take by mouth. amoxicillin (POLYMOX, AMOXIL) 500 mg capsule Take 4 capsules by mouth as directed. ONE HOUR PRIOR TO DENTAL WORK CALCIUM ORAL Take by mouth. THERAPEUTIC MULTIVITAMIN TAB Take one tablet daily No current facility-administered medications on file prior to visit. Social History Social History Tobacco Use Smoking status: Never Smokeless tobacco: Never Substance Use Topics Alcohol use: No Drug use: No REVIEW OF SYSTEMS: as above Reviewed relevant PMHx, PSHx, Social Hx, current medications and allergies. Review of Symptoms REVIEW OF SYSTEMS See HPI. EXAM: BP 104/60 (BP Site: Left Arm, BP Position: Sitting, BP Cuff Size: Regular Adult) Pulse 80 Resp 14 Ht 167 cm (5' 5.75 ) Wt 77.4 kg (170 lb 9.6 oz) LMP 01/22/2005 (LMP Unknown) BMI 27.75 kg/m General Appearance: Well appearing, alert, in no acute distress, well-hydrated, well nourished.. Skin: Skin color, texture, turgor normal, no suspicious rashes or lesions. Head: Normocephalic, no masses, lesions, tenderness or abnormalities. Lungs: Lungs clear to auscultation. No wheezing, rhonchi, rales.. Heart: RRR without murmur, gallop, or rubs. No ectopy. Abdomen: Normal abdominal exam, Abdomen soft, non-tender. Bowel sounds normal. No masses, organomegaly. Peripheral Pulses: Normal. Health Maintenance List HEPATITIS C SCREENING Never done COVID-19 VACCINE(4 - Pfizer series) due on 10/19/2021 ADVANCE DIRECTIVE DISCUSSION Never done DEPRESSION ASSESSMENT Never done MAMMOGRAM due on 04/14/2023 INFLUENZA(1) due on 04/03/2023 ANNUAL PCP TEAM CHRONIC DISEASE VISIT due on 02/20/2024 DIABETES SCREEN due on 03/06/2026 LIPID SCREEN due on 03/07/2028 COLORECTAL CANCER SCREENING due on 10/07/2028 DTAP,TDAP,TD(4 - Td or Tdap) due on 05/17/2030 BONE DENSITY Completed SHINGRIX VACCINE Completed PNEUMOCOCCAL: 65+ Completed ASSESSMENT/PLAN: 1. Recurrent UTI (urinary tract infection) - ICD9: 599.0, ICD10: N39.0 (primary diagnosis) acute - Patient education for prevention given Return to lab on Thursday or Thursday for repeat/ test of cure urine sample after antibiotic regimen is complete. If still no resolution - may need urology consult. Looking for resolution of bacteria and hematuria. - URINE CULTURE - URINALYSIS, WITH MICROSCOPIC 2. Encounter for screening mammogram for malignant neoplasm of breast - ICD9: V76.12, ICD10: Z12.31 - MORA SCREENING 3. Hypothyroidism, iatrogenic - ICD9: 244.3, ICD10: E03.2 - Instructed patient on importance of taking on an empty stomach either first thing in the morning or at bedtime. - continue current dose of Synthroid 0.112 mg 4. Groin discomfort, right - ICD9: 789.09, ICD10: R10.31 Likely hernia based on description. Assessment in office WNL. Discussed possible CT scan to diagnosis -- pt reports not bothersome enough for surgical intervention, therefore, scan not necessary Discussed red flag symptoms for hernia and when to seek medical attention. 5. Plantar fasciitis - ICD9: 728.71, ICD10: M72.2 Stable. Discussed OTC NSAID used BID x 1 week during flares. RTO annually and as needed. Prescription instructions reviewed with patient as applicable. Potential red flag symptoms discussed with the patient. Reviewed appropriate action plan to take if red flag symptoms occur. Patient agreeable to treatment plan. Nadege Hawkins APRN.[employer]ER [address] [place] [address] documented in this encounter [facility] 03-10-2023 Miscellaneous Notes Patient notified. Verbalized understanding. Please inform patient that her cholesterol is much improved! Tushar Caballero DO documented in this encounter [facility] 03-09-2023 Miscellaneous Notes Patient active MyChart. Patient notified via [employer] message. Ksenia Chou MA Please let the patient know that her urine sample shows red blood cells, leukocytes. Mixed amount of bacteria grew on culture. I called in antibiotic into her pharmacy. Continue with follow-up with PCP team on March 11. Jimenez Hoffman APRN.[employer] INSTALLER documented in this encounter [facility] 03-06-2023 Miscellaneous Notes Called pt gave information as provided. Pt voices understanding. Lab orders placed. However, these really should be fasting. Please let her know that if not fasting, her lipid panel will not be accurate. Margaret Poole APRN.[employer] INSTALLER Nadege, Patient is scheduled for well visit 03/11/23 at 2:[address]. [address] non-fasting labs so patient can complete while at lab today 03/06. Ksenia Chou MA documented in this encounter [facility] 02-23-2023 Miscellaneous Notes Pt notified. Bhargavi Sainz Ma Okay I put in a repeat urine culture. Jimenez Hoffman APRN.CNP Pt notified. Pt states this is 3 antibiotic since January 2023. She is asking if she should repeat a urine culture after she completes the current antibiotic to make sure that infection has cleared completely. Please advise. Bhargavi Sainz Ma Please let the patient know that her urine culture did grow E. coli. Showing that the Macrobid that was prescribed will treat adequately. Jimenez Hoffman APRN.CNP documented in this encounter [facility] 02-19-2023 Note HNO ID: [id number] Author: Alessandra Lima APRN.CNP Service: ? Author Type: Nurse Practitioner Type: Progress Notes Filed: 02/19/2023 11:18 AM Note Text: This is a 67 year old female who presents today with: Patient presents with: Follow Up: UC follow up for UTI HISTORY OF PRESENT ILLNESS: Alfreda Padgett is a 67 year old female. Patient presents with: Follow Up: UC follow up for UTI Patient of Dr. Caballero here in the office for urgent care follow up. Went to express care on 01/20/2023 and 01/26/2023, recurrent dysuria for over 3 weeks, started on Keflex and Pyridium. Urine culture came back positive for E. coli. Symptoms improved but came back once antibiotics were finished. Having Dysuria. Denies any fever, chills, hematuria, or flank pain. PAST MEDICAL HISTORY: PAST MEDICAL HISTORY Diagnosis Date Broken finger right pinky finger Eczema Hypothyroidism, iatrogenic s/p thryoidectomy for MNG Iron deficiency anemia, unspecified pre-menopausal Multinodular goiter (nontoxic) Osteoarthritis, generalized Plantar fasciitis PAST SURGICAL HISTORY Procedure Laterality Date ADENOIDECTOMY PRIMARY Adenoidectomy ARTHRP ACETBLR/PROX FEM PROSTC AGRFT/ALGRFT Right 06/02/2016 Hip replacement, total BLEPHAROPLASTY UPPER EYELID 04/2008 Blepharoplasty, upper-bilateral COLONOSCOPY AND POLYPECTOMY [id number] Dr Nascimento- repeat due 2018 COLONOSCOPY FLX DX W/COLLJ SPEC WHEN PFRMD 12/10/01 Repeat in COLONOSCOPY FLX DX W/COLLJ SPEC WHEN PFRMD 10/07/2018 Colonoscopy CORRECT BUNION,SIMPLE 1996 BUNIONECTOMY bilateral DILATION AND CURETTAGE DXAND/THER NONOBSTETRIC Dilation AND curettage LIG/TRNSXJ FLP TUBE ABDL/VAG APPR UNI/BI 1995 Tubal ligation BILATERAL NEUROPLASTY AND/TRANSPOS MEDIAN NRV CARPAL TUNNE 06/2009 Carpal tunnel decomp bilaterally done @ [facility] PAST SURGICAL HISTORY OF 1979 OPENED RIGHT OVARIAN CYST PAST SURGICAL HISTORY OF 11/2008 foot and toe PAST SURGICAL HISTORY OF 2010 left trigger thumb THYROIDECTOMY TOTAL/COMPLETE 10-22-12 total for nodules/no cancer TONSILLECTOMY PRIMARY/SECONDARY Tonsillectomy ALLERGIES Patient has no known allergies. MEDICATIONS Current Outpatient Medications Medication Sig phenazopyridine (PYRIDIUM) 200 mg tablet Take 1 tablet by mouth three times daily as needed. levothyroxine (SYNTHROID) 112 mcg tablet Take 1 tablet by mouth once daily. gabapentin (NEURONTIN) 100 mg capsule take 1 capsule by mouth at bedtime hydrocortisone 2.5 % cream Apply to affected area two times daily as needed for 1-2 weeks after 5% fluorouracil cream (Patient not taking: Reported on 11/04/2021 ) Fluorouracil (EFUDEX) 5 % cream Apply 2x daily to forehead and temples for 2 weeks. May stop for few days or decrease to once daily for discomfort (Patient not taking: Reported on 11/04/2021 ) diclofenac sodium (VOLTAREN) 1 % topical gel Apply 4 g to affected area four times daily. ergocalciferol, vitamin D2, (VITAMIN D2 ORAL) Take by mouth. TURMERIC ORAL Take by mouth. amoxicillin (POLYMOX, AMOXIL) 500 mg capsule Take 4 capsules by mouth as directed. ONE HOUR PRIOR TO DENTAL WORK CALCIUM ORAL Take by mouth. THERAPEUTIC MULTIVITAMIN TAB Take one tablet daily No current facility-administered medications for this visit. FAMILY HISTORY Problem Relation Age of Onset Stroke Mother Arthritis Mother Stroke Paternal Grandfather AND DIABETES Diabetes Paternal Grandfather Diabetes Paternal Grandmother Hypertension Brother Hypertension Brother Social History Tobacco Use Smoking status: Never Smokeless tobacco: Never Substance Use Topics Alcohol use: No Drug use: No REVIEW OF SYSTEMS GENERAL: No weight loss, malaise or fevers/chills HEENT: Negative for frequent or significant headaches, No changes in hearing or vision. NECK: Negative for lumps, goiter, pain and significant neck swelling RESPIRATORY: Negative for cough, hemoptysis, wheezing, dyspnea or shortness of breath CARDIOVASCULAR: Negative for chest pain, leg swelling, orthopnea, or palpitations GI: No nausea, vomiting, or diarrhea/constipation. No hematochezia/melena. No heartburn or reflux symptoms. : + Dysuria MUSCULOSKELETAL: Negative for joint pain or swelling. SKIN: Negative for lesions, rash, and itching ENDOCRINE: Negative for cold or heat intolerance, polyuria, polydipsia and goiter NEURO: No history of headaches, syncope, paralysis, seizures or tremors MOOD: Negative for depression, anxiety, or suicidal ideation. EXAM: BP 108/58 Pulse 84 Resp 16 Wt 77.6 kg (171 lb) LMP 01/22/2005 (LMP Unknown) SpO2 97% BMI 29.35 kg/m? PHYSICAL EXAM: General Appearance: Well appearing, alert, in no acute distress, well-hydrated, well nourished. Skin: Skin color, texture, turgor normal, no suspicious rashes or lesions. Head: Normocephalic, no masses, lesions, tenderness or abnormalities. Eyes: Anicteric s (more content not included)... [facility] 02-19-2023 Instructions Alessandra Lmia APRN.BULMARO - 02/19/2023 10:15 AM EDT Start Macrobid, take twice daily with food. Increase water intake. May use Pyridium as needed for pain. This will turn the urine orange. Urine will be sent off for culture. Follow up pending test results or sooner as needed. Vitamin C 500 mg, Probiotic, and D-Mannose, supplements you may consider. documented in this encounter [facility] 02-19-2023 History of Presen t illness Narrative This is a 67 year old female who presents today with: Patient presents with: Follow Up: UC follow up for UTI HISTORY OF PRESENT ILLNESS: Alfreda Padgett is a 67 year old female. Patient presents with: Follow Up: UC follow up for UTI Patient of Dr. Cabalelro here in the office for urgent care follow up. Went to [facility] care on 01/20/2023 and 01/26/2023, recurrent dysuria for over 3 weeks, started on Keflex and Pyridium. Urine culture came back positive for E. coli. Symptoms improved but came back once antibiotics were finished. Having Dysuria. Denies any fever, chills, hematuria, or flank pain. PAST MEDICAL HISTORY: PAST MEDICAL HISTORY Diagnosis Date Broken finger right pinky finger Eczema Hypothyroidism, iatrogenic s/p thryoidectomy for MNG Iron deficiency anemia, unspecified pre-menopausal Multinodular goiter (nontoxic) Osteoarthritis, generalized Plantar fasciitis PAST SURGICAL HISTORY Procedure Laterality Date ADENOIDECTOMY PRIMARY <AGE 10 remote Adenoidectomy ARTHRP ACETBLR/PROX FEM PROSTC AGRFT/ALGRFT Right 06/02/2016 Hip replacement, total BLEPHAROPLASTY UPPER EYELID 04/2008 Blepharoplasty, upper-bilateral COLONOSCOPY & POLYPECTOMY [id number] Dr Nascimento- repeat due 2018 COLONOSCOPY FLX DX W/COLLJ SPEC WHEN PFRMD 12/10/01 Repeat in COLONOSCOPY FLX DX W/COLLJ SPEC WHEN PFRMD 10/07/2018 Colonoscopy CORRECT BUNION,SIMPLE 1996 BUNIONECTOMY bilateral DILATION & CURETTAGE DX&/THER NONOBSTETRIC Dilation & curettage LIG/TRNSXJ FLP TUBE ABDL/VAG APPR UNI/BI 1995 Tubal ligation BILATERAL NEUROPLASTY &/TRANSPOS MEDIAN NRV CARPAL TUNNE 06/2009 Carpal tunnel decomp bilaterally done @ [facility] PAST SURGICAL HISTORY OF 1979 OPENED RIGHT OVARIAN CYST PAST SURGICAL HISTORY OF 11/2008 foot and toe PAST SURGICAL HISTORY OF 2010 left trigger thumb THYROIDECTOMY TOTAL/COMPLETE 10-22-12 total for nodules/no cancer TONSILLECTOMY PRIMARY/SECONDARY <AGE 10 remote Tonsillectomy ALLERGIES Patient has no known allergies. MEDICATIONS Current Outpatient Medications Medication Sig phenazopyridine (PYRIDIUM) 200 mg tablet Take 1 tablet by mouth three times daily as needed. levothyroxine (SYNTHROID) 112 mcg tablet Take 1 tablet by mouth once daily. gabapentin (NEURONTIN) 100 mg capsule take 1 capsule by mouth at bedtime hydrocortisone 2.5 % cream Apply to affected area two times daily as needed for 1-2 weeks after 5% fluorouracil cream (Patient not taking: Reported on 11/04/2021 ) Fluorouracil (EFUDEX) 5 % cream Apply 2x daily to forehead and temples for 2 weeks. May stop for few days or decrease to once daily for discomfort (Patient not taking: Reported on 11/04/2021 ) diclofenac sodium (VOLTAREN) 1 % topical gel Apply 4 g to affected area four times daily. ergocalciferol, vitamin D2, (VITAMIN D2 ORAL) Take by mouth. TURMERIC ORAL Take by mouth. amoxicillin (POLYMOX, AMOXIL) 500 mg capsule Take 4 capsules by mouth as directed. ONE HOUR PRIOR TO DENTAL WORK CALCIUM ORAL Take by mouth. THERAPEUTIC MULTIVITAMIN TAB Take one tablet daily No current facility-administered medications for this visit. FAMILY HISTORY Problem Relation Age of Onset Stroke Mother Arthritis Mother Stroke Paternal Grandfather AND DIABETES Diabetes Paternal Grandfather Diabetes Paternal Grandmother Hypertension Brother Hypertension Brother Social History Tobacco Use Smoking status: Never Smokeless tobacco: Never Substance Use Topics Alcohol use: No Drug use: No REVIEW OF SYSTEMS GENERAL: No weight loss, malaise or fevers/chills HEENT: Negative for frequent or significant headaches, No changes in hearing or vision. NECK: Negative for lumps, goiter, pain and significant neck swelling RESPIRATORY: Negative for cough, hemoptysis, wheezing, dyspnea or shortness of breath CARDIOVASCULAR: Negative for chest pain, leg swelling, orthopnea, or palpitations GI: No nausea, vomiting, or diarrhea/constipation. No hematochezia/melena. No heartburn or reflux symptoms. : + Dysuria MUSCULOSKELETAL: Negative for joint pain or swelling. SKIN: Negative for lesions, rash, and itching ENDOCRINE: Negative for cold or heat intolerance, polyuria, polydipsia and goiter NEURO: No history of headaches, syncope, paralysis, seizures or tremors MOOD: Negative for depression, anxiety, or suicidal ideation. EXAM: BP 108/58 Pulse 84 Resp 16 Wt 77.6 kg (171 lb) LMP 01/22/2005 (LMP Unknown) SpO2 97% BMI 29.35 kg/m PHYSICAL EXAM: General Appearance: Well appearing, alert, in no acute distress, well-hydrated, well nourished. Skin: Skin color, texture, turgor normal, no suspicious rashes or lesions. Head: Normocephalic, no masses, lesions, tenderness or abnormalities. Eyes: Anicteric sclera. Extraocular movements are intact. Lungs: Lungs clear to auscultation. No wheezing, rhonchi, rales. Heart: RRR without murmur, gallop, or rubs. No ectopy. Abdomen: Normal abdominal exam, Abdomen soft, non-tender. Bowel sounds normal. No masses, organomegaly, Negative CVA tenderness. Extremities: No deformities, edema, skin discoloration, clubbing or cyanosis. Good capillary refill. Peripheral Pulses: Normal, Capillary refill <2secs, strong peripheral pulses, Pulses palpable. Neurologic: Gait normal. Sensation grossly intact. ASSESSMENT/PLAN: 1. Dysuria - ICD9: 788.1, ICD10: R30.0 recurrent - UA positive for lynn esterase, hematuria, and proteinuria - Send urine for culture - Begin treatment with Macrobid 100 mg BID for 7 days - Patient education for prevention given - May need consult with Urology if symptoms persist. - URINE CULTURE - NITROFURANTOIN MONOHYDRATE & MACROCRYSTAL 100 MG ORAL CAP - PHENAZOPYRIDINE 200 MG TABLET Low up pending test results or sooner as needed. Discussed treatment plan and patient voices understanding. Patient's questions answered appropriately. Medications and potential side effects were discussed and patient voices understanding. Alessandra Lima APRN.BULMARO This note was partially generated using [employer] recognition system. Note was reviewed for accuracy. There may be minor misspellings or grammar miscues with [employer] voice recognition. documented in this encounter [facility] 01-26-2023 Note HNO ID: [id number] Author: Maine Cerrato APRN.CNP Service: ? Author Type: Nurse Practitioner Type: Progress Notes Filed: 01/26/2023 7:41 AM Note Text: This note was created using [employer]. Subjective Alfreda Padgett is a 67 year old female. 67 year old female with PMH hypothyroidism, renal stone, OA presents for think I have a UTI Acute onset 3 weeks to one month ago. States that she noticed blood in her urine. +dysuria Seen 01/20/23. Urine culture +e.coli growth. Placed on Macrobid, Endorses yesterday evening she started with burning symtpoms. Denies abdominal pain. Denies flank pain. Denies vaginal bleeding. Denies vaginal discharge. States she is going to [employer] for the next 5 days, in fact endorses we are set to leave at 0830 today . Denies recent sexual activity. Denies recent urological procedure or catherization. The history is provided by the patient. No specialized language instructor was used. UTI This is a recurrent problem. The current episode started more than 1 week ago. The problem occurs every urination. The problem has been gradually worsening. The quality of the pain is described as burning. The pain is at a severity of 5/10. The pain is moderate. There has been no fever. She is Not sexually active. Associated symptoms include frequency. Pertinent negatives include no chills, no sweats, no nausea, no vomiting, no discharge, no hematuria, no hesitancy, no possible , no urgency and no flank pain. Treatments tried: macrobid. Her past medical history is significant for kidney stones. Her past medical history does not include single kidney, urological procedure, recurrent UTIs, urinary stasis or catheterization. PAST MEDICAL HISTORY Diagnosis Date Broken finger right pinky finger Eczema Hypothyroidism, iatrogenic s/p thryoidectomy for MNG Iron deficiency anemia, unspecified pre-menopausal Multinodular goiter (nontoxic) Osteoarthritis, generalized Plantar fasciitis PAST SURGICAL HISTORY Procedure Laterality Date ADENOIDECTOMY PRIMARY Adenoidectomy ARTHRP ACETBLR/PROX FEM PROSTC AGRFT/ALGRFT Right 06/02/2016 Hip replacement, total BLEPHAROPLASTY UPPER EYELID 04/2008 Blepharoplasty, upper-bilateral COLONOSCOPY AND POLYPECTOMY [id number] Dr Nascimento- repeat due 2018 COLONOSCOPY FLX DX W/COLLJ SPEC WHEN PFRMD 12/10/01 Repeat in COLONOSCOPY FLX DX W/COLLJ SPEC WHEN PFRMD 10/07/2018 Colonoscopy CORRECT BUNION,SIMPLE 1997 BUNIONECTOMY bilateral DILATION AND CURETTAGE DXAND/THER NONOBSTETRIC Dilation AND curettage LIG/TRNSXJ FLP TUBE ABDL/VAG APPR UNI/BI 1995 Tubal ligation BILATERAL NEUROPLASTY AND/TRANSPOS MEDIAN NRV CARPAL TUNNE 06/2009 Carpal tunnel decomp bilaterally done @ [facility] PAST SURGICAL HISTORY OF 1979 OPENED RIGHT OVARIAN CYST PAST SURGICAL HISTORY OF 11/2008 foot and toe PAST SURGICAL HISTORY OF 2010 left trigger thumb THYROIDECTOMY TOTAL/COMPLETE 10-22-12 total for nodules/no cancer TONSILLECTOMY PRIMARY/SECONDARY Tonsillectomy ALLERGIES Patient has no known allergies. MEDICATIONS levothyroxine (SYNTHROID) 112 mcg tablet Take 1 tablet by mouth once daily. ergocalciferol, vitamin D2, (VITAMIN D2 ORAL) Take by mouth. TURMERIC ORAL Take by mouth. amoxicillin (POLYMOX, AMOXIL) 500 mg capsule Take 4 capsules by mouth as directed. ONE HOUR PRIOR TO DENTAL WORK CALCIUM ORAL Take by mouth. THERAPEUTIC MULTIVITAMIN TAB Take one tablet daily cephALEXin (KEFLEX) 500 mg capsule Take 1 capsule by mouth four times daily for 10 days. phenazopyridine (PYRIDIUM) 200 mg tablet Take 1 tablet by mouth three times daily as needed. gabapentin (NEURONTIN) 100 mg capsule take 1 capsule by mouth at bedtime hydrocortisone 2.5 % cream Apply to affected area two times daily as needed for 1-2 weeks after 5% fluorouracil cream (Patient not taking: Reported on 11/04/2021 ) Fluorouracil (EFUDEX) 5 % cream Apply 2x daily to forehead and temples for 2 weeks. May stop for few days or decrease to once daily for discomfort (Patient not taking: Reported on 11/04/2021 ) diclofenac sodium (VOLTAREN) 1 % topical gel Apply 4 g to affected area four times daily. FAMILY HISTORY Problem Relation Age of Onset Stroke Mother Arthritis Mother Stroke Paternal Grandfather AND DIABETES Diabetes Paternal Grandfather Diabetes Paternal Grandmother Hypertension Brother Hypertension Brother Social History Tobacco Use Smoking status: Never Smokeless tobacco: Never Substance Use Topics Alcohol use: No Drug use: No Review of Systems Constitutional: Negative for chills, fatigue and fever. Respiratory: Negative for apnea, cough and chest tightness. Cardiovascular: Negative for chest pain and leg swelling. Gastrointestinal: Negative for abdominal pain, nausea and vomiting. Genitourinary: Positive for dysuria and frequency. Negative for flank pain, hematuria, hesitancy a (more content not included)... [facility] 01-26-2023 History of Presen t illness Narrative This note was created using [employer]. Subjective Alfreda Padgett is a 67 year old female. 67 year old female with PMH hypothyroidism, renal stone, OA presents for think I have a UTI Acute onset 3 weeks to one month ago. States that she noticed blood in her urine. +dysuria Seen 01/20/23. Urine culture +e.coli growth. Placed on Macrobid, Endorses yesterday evening she started with burning symtpoms. Denies abdominal pain. Denies flank pain. Denies vaginal bleeding. Denies vaginal discharge. States she is going to [employer] for the next 5 days, in fact endorses we are set to leave at 0830 today . Denies recent sexual activity. Denies recent urological procedure or catherization. The history is provided by the patient. No specialized language instructor was used. UTI This is a recurrent problem. The current episode started more than 1 week ago. The problem occurs every urination. The problem has been gradually worsening. The quality of the pain is described as burning. The pain is at a severity of 5/10. The pain is moderate. There has been no fever. She is Not sexually active. Associated symptoms include frequency. Pertinent negatives include no chills, no sweats, no nausea, no vomiting, no discharge, no hematuria, no hesitancy, no possible , no urgency and no flank pain. Treatments tried: macrobid. Her past medical history is significant for kidney stones. Her past medical history does not include single kidney, urological procedure, recurrent UTIs, urinary stasis or catheterization. PAST MEDICAL HISTORY Diagnosis Date Broken finger right pinky finger Eczema Hypothyroidism, iatrogenic s/p thryoidectomy for MNG Iron deficiency anemia, unspecified pre-menopausal Multinodular goiter (nontoxic) Osteoarthritis, generalized Plantar fasciitis PAST SURGICAL HISTORY Procedure Laterality Date ADENOIDECTOMY PRIMARY <AGE 10 remote Adenoidectomy ARTHRP ACETBLR/PROX FEM PROSTC AGRFT/ALGRFT Right 06/02/2016 Hip replacement, total BLEPHAROPLASTY UPPER EYELID 04/2008 Blepharoplasty, upper-bilateral COLONOSCOPY & POLYPECTOMY [id number] Dr Nascimento- repeat due 2019 COLONOSCOPY FLX DX W/COLLJ SPEC WHEN PFRMD 12/10/01 Repeat in COLONOSCOPY FLX DX W/COLLJ SPEC WHEN PFRMD 10/07/2018 Colonoscopy CORRECT BUNION,SIMPLE 1996 BUNIONECTOMY bilateral DILATION & CURETTAGE DX&/THER NONOBSTETRIC Dilation & curettage LIG/TRNSXJ FLP TUBE ABDL/VAG APPR UNI/BI 1995 Tubal ligation BILATERAL NEUROPLASTY &/TRANSPOS MEDIAN NRV CARPAL TUNNE 06/2009 Carpal tunnel decomp bilaterally done @ [facility] PAST SURGICAL HISTORY OF 1979 OPENED RIGHT OVARIAN CYST PAST SURGICAL HISTORY OF 11/2008 foot and toe PAST SURGICAL HISTORY OF 2010 left trigger thumb THYROIDECTOMY TOTAL/COMPLETE 10-22-12 total for nodules/no cancer TONSILLECTOMY PRIMARY/SECONDARY <AGE 10 remote Tonsillectomy ALLERGIES Patient has no known allergies. MEDICATIONS levothyroxine (SYNTHROID) 112 mcg tablet Take 1 tablet by mouth once daily. ergocalciferol, vitamin D2, (VITAMIN D2 ORAL) Take by mouth. TURMERIC ORAL Take by mouth. amoxicillin (POLYMOX, AMOXIL) 500 mg capsule Take 4 capsules by mouth as directed. ONE HOUR PRIOR TO DENTAL WORK CALCIUM ORAL Take by mouth. THERAPEUTIC MULTIVITAMIN TAB Take one tablet daily cephALEXin (KEFLEX) 500 mg capsule Take 1 capsule by mouth four times daily for 10 days. phenazopyridine (PYRIDIUM) 200 mg tablet Take 1 tablet by mouth three times daily as needed. gabapentin (NEURONTIN) 100 mg capsule take 1 capsule by mouth at bedtime hydrocortisone 2.5 % cream Apply to affected area two times daily as needed for 1-2 weeks after 5% fluorouracil cream (Patient not taking: Reported on 11/04/2021 ) Fluorouracil (EFUDEX) 5 % cream Apply 2x daily to forehead and temples for 2 weeks. May stop for few days or decrease to once daily for discomfort (Patient not taking: Reported on 11/04/2021 ) diclofenac sodium (VOLTAREN) 1 % topical gel Apply 4 g to affected area four times daily. FAMILY HISTORY Problem Relation Age of Onset Stroke Mother Arthritis Mother Stroke Paternal Grandfather AND DIABETES Diabetes Paternal Grandfather Diabetes Paternal Grandmother Hypertension Brother Hypertension Brother Social History Tobacco Use Smoking status: Never Smokeless tobacco: Never Substance Use Topics Alcohol use: No Drug use: No Review of Systems Constitutional: Negative for chills, fatigue and fever. Respiratory: Negative for apnea, cough and chest tightness. Cardiovascular: Negative for chest pain and leg swelling. Gastrointestinal: Negative for abdominal pain, nausea and vomiting. Genitourinary: Positive for dysuria and frequency. Negative for flank pain, hematuria, hesitancy and urgency. Musculoskeletal: Negative for back pain. Skin: Negative for color change, pallor and rash. Allergic/Immunologic: Negative for environmental allergies, food allergies and immunocompromised state. Hematological: Negative for adenopathy. Does not bruise/bleed easily. Psychiatric/Behavioral: Negative for agitation and behavioral problems. Objective BP 116/72 Pulse 83 Temp 36.1 C (97 F) Resp 21 Wt 77.3 kg (170 lb 6.4 oz) LMP 01/22/2005 (LMP Unknown) SpO2 98% BMI 29.25 kg/m Physical Exam Vitals and nursing note reviewed. Constitutional: General: She is not in acute distress. Appearance: Normal appearance. She is normal weight. She is not ill-appearing, toxic-appearing or diaphoretic. HENT: Head: Normocephalic and atraumatic. Right Ear: Ear canal and external ear normal. Left Ear: Ear canal and external ear normal. Nose: Nose normal. No congestion or rhinorrhea. Mouth/Throat: Mouth: Mucous membranes are moist. Pharynx: No oropharyngeal exudate or posterior oropharyngeal erythema. Eyes: General: Right eye: No discharge. Left eye: No discharge. Extraocular Movements: Extraocular movements intact. Conjunctiva/sclera: Conjunctivae normal. Pupils: Pupils are equal, round, and reactive to light. Cardiovascular: Rate and Rhythm: Normal rate and regular rhythm. Pulses: Normal pulses. Heart sounds: Normal heart sounds. No murmur heard. No friction rub. Pulmonary: Effort: Pulmonary effort is normal. No respiratory distress. Breath sounds: Normal breath sounds. No stridor. No wheezing, rhonchi or rales. Chest: Chest wall: No tenderness. Abdominal: General: Abdomen is flat. There is no distension. Palpations: Abdomen is soft. There is no mass. Tenderness: There is no abdominal tenderness. There is no right CVA tenderness, left CVA tenderness, guarding or rebound. Hernia: No hernia is present. Musculoskeletal: General: No swelling, tenderness, deformity or signs of injury. Normal range of motion. Cervical back: Normal range of motion and neck supple. No rigidity. Right lower leg: No edema. Left lower leg: No edema. Lymphadenopathy: Cervical: No cervical adenopathy. Skin: General: Skin is warm and dry. Capillary Refill: Capillary refill takes less than 2 seconds. Coloration: Skin is not jaundiced or pale. Findings: No bruising, erythema, lesion or rash. Neurological: General: No focal deficit present. Mental Status: She is alert and oriented to person, place, and time. Cranial Nerves: No cranial nerve deficit. Sensory: No sensory deficit. Motor: No weakness. Coordination: Coordination normal. Gait: Gait normal. Psychiatric: Mood and Affect: Mood normal. Behavior: Behavior normal. Thought Content: Thought content normal. Judgment: Judgment normal. Assessment and Plan ASSESSMENT/PLAN: 1. Cystitis with hematuria - ICD9: 595.9, ICD10: N30.91 Recurrent Dysuria onset 3 weeks ago Seen here 01/20/23. Urine culture +e.coli growth. Placed on Macrobid, Endorses yesterday evening she started with burning symtpoms. - Today UA positive for lynn esterase and hematuria - Send urine for culture Treating as complicated, - Begin treatment with Keflex for 10 days RX Pyridium - Patient education for prevention given - URINE CULTURE Patient created a follow up appt at time of discharge to ensure resolve ment of symptoms. Maine Cerrato APRN.BULMARO documented in this encounter [facility] 01-20-2023 Note HNO ID: [id number] Author: Hilary Metzger PA-C Service: ? Author Type: Physician Vice President Of Software Development Type: Progress Notes Filed: 01/20/2023 4:48 PM Note Text: This note was created using [employer]. Subjective Alfreda Padgett is a 67 year old female. HPI Presents with gross hematuria and dysuria. She noticed 3 weeks ago she had blood when she wiped after urinating. She noticed this 1 other time about 2 weeks ago but since then has not noticed blood in her urine. She has had some dysuria off and on. No vaginal itching or discharge. She denies being on antibiotics recently. No back pain or abdominal pain. She did have a work-up in 2007 for microscopic hematuria which was found to be benign. She did have some small kidney stones in her kidney but has never had pain from a kidney stone that she knows of. No vomiting or fever. Review of Systems Constitutional: Negative for fever. HENT: Negative. Respiratory: Negative. Cardiovascular: Negative. Gastrointestinal: Negative. Genitourinary: Positive for dysuria, frequency and hematuria. Negative for flank pain, genital sores, pelvic pain, urgency, vaginal bleeding, vaginal discharge and vaginal pain. All other systems reviewed and are negative. PAST MEDICAL HISTORY Diagnosis Date Broken finger right pinky finger Eczema Hypothyroidism, iatrogenic s/p thryoidectomy for MNG Iron deficiency anemia, unspecified pre-menopausal Multinodular goiter (nontoxic) Osteoarthritis, generalized Plantar fasciitis Current Outpatient Medications Medication Sig Dispense Refill levothyroxine (SYNTHROID) 112 mcg tablet Take 1 tablet by mouth once daily. 90 tablet 3 ergocalciferol, vitamin D2, (VITAMIN D2 ORAL) Take by mouth. TURMERIC ORAL Take by mouth. amoxicillin (POLYMOX, AMOXIL) 500 mg capsule Take 4 capsules by mouth as directed. ONE HOUR PRIOR TO DENTAL WORK 4 capsule 3 CALCIUM ORAL Take by mouth. THERAPEUTIC MULTIVITAMIN TAB Take one tablet daily 0 nitrofurantoin monohydrate and macrocrystal (MACROBID) 100 mg capsule Take 1 capsule by mouth twice daily with meals for 5 days. 10 capsule 0 gabapentin (NEURONTIN) 100 mg capsule take 1 capsule by mouth at bedtime 90 capsule 1 hydrocortisone 2.5 % cream Apply to affected area two times daily as needed for 1-2 weeks after 5% fluorouracil cream (Patient not taking: Reported on 11/04/2021 ) 30 g 0 Fluorouracil (EFUDEX) 5 % cream Apply 2x daily to forehead and temples for 2 weeks. May stop for few days or decrease to once daily for discomfort (Patient not taking: Reported on 11/04/2021 ) 40 g 0 diclofenac sodium (VOLTAREN) 1 % topical gel Apply 4 g to affected area four times daily. 100 g 1 No current facility-administered medications for this visit. PAST SURGICAL HISTORY Procedure Laterality Date ADENOIDECTOMY PRIMARY Adenoidectomy ARTHRP ACETBLR/PROX FEM PROSTC AGRFT/ALGRFT Right 06/02/2016 Hip replacement, total BLEPHAROPLASTY UPPER EYELID 04/2008 Blepharoplasty, upper-bilateral COLONOSCOPY AND POLYPECTOMY [id number] Dr Nascimento- repeat due 2019 COLONOSCOPY FLX DX W/COLLJ SPEC WHEN PFRMD 12/10/01 Repeat in COLONOSCOPY FLX DX W/COLLJ SPEC WHEN PFRMD 10/07/2018 Colonoscopy CORRECT BUNION,SIMPLE 1996 BUNIONECTOMY bilateral DILATION AND CURETTAGE DXAND/THER NONOBSTETRIC Dilation AND curettage LIG/TRNSXJ FLP TUBE ABDL/VAG APPR UNI/BI 1995 Tubal ligation BILATERAL NEUROPLASTY AND/TRANSPOS MEDIAN NRV CARPAL TUNNE 06/2009 Carpal tunnel decomp bilaterally done @ [facility] PAST SURGICAL HISTORY OF 1979 OPENED RIGHT OVARIAN CYST PAST SURGICAL HISTORY OF 11/2008 foot and toe PAST SURGICAL HISTORY OF 2010 left trigger thumb THYROIDECTOMY TOTAL/COMPLETE 10-22-12 total for nodules/no cancer TONSILLECTOMY PRIMARY/SECONDARY Tonsillectomy FAMILY HISTORY Problem Relation Age of Onset Stroke Mother Arthritis Mother Stroke Paternal Grandfather AND DIABETES Diabetes Paternal Grandfather Diabetes Paternal Grandmother Hypertension Brother Hypertension Brother Social History Tobacco Use Smoking status: Never Smokeless tobacco: Never Substance Use Topics Alcohol use: No Drug use: No Objective BP 134/86 Pulse 78 Temp 36.4 ?C (97.5 ?F) (Tympanic) Resp 14 Wt 77.6 kg (171 lb) LMP 01/22/2005 (LMP Unknown) BMI 29.35 kg/m? Physical Exam Vitals reviewed. Constitutional: Appearance: Normal appearance. HENT: Head: Normocephalic and atraumatic. Cardiovascular: Rate and Rhythm: Normal rate and regular rhythm. Heart sounds: Normal heart sounds. Pulmonary: Effort: Pulmonary effort is normal. Breath sounds: Normal breath sounds. Abdominal: General: Abdomen is flat. Palpations: Abdomen is soft. Tenderness: There is no abdominal tenderness. There is no right CVA tenderness, left CVA tenderness or guarding. Musculoskeletal: Cervical back: Neck supple. Skin: General: Skin is warm and dry. Neurologi (more content not included)... [facility] 01-20-2023 History of Presen t illness Narrative This note was created using NoteWriter. Subjective Alfreda Padgett is a 67 year old female. HPI Presents with gross hematuria and dysuria. She noticed 3 weeks ago she had blood when she wiped after urinating. She noticed this 1 other time about 2 weeks ago but since then has not noticed blood in her urine. She has had some dysuria off and on. No vaginal itching or discharge. She denies being on antibiotics recently. No back pain or abdominal pain. She did have a work-up in 2007 for microscopic hematuria which was found to be benign. She did have some small kidney stones in her kidney but has never had pain from a kidney stone that she knows of. No vomiting or fever. Review of Systems Constitutional: Negative for fever. HENT: Negative. Respiratory: Negative. Cardiovascular: Negative. Gastrointestinal: Negative. Genitourinary: Positive for dysuria, frequency and hematuria. Negative for flank pain, genital sores, pelvic pain, urgency, vaginal bleeding, vaginal discharge and vaginal pain. All other systems reviewed and are negative. PAST MEDICAL HISTORY Diagnosis Date Broken finger right pinky finger Eczema Hypothyroidism, iatrogenic s/p thryoidectomy for MNG Iron deficiency anemia, unspecified pre-menopausal Multinodular goiter (nontoxic) Osteoarthritis, generalized Plantar fasciitis Current Outpatient Medications Medication Sig Dispense Refill levothyroxine (SYNTHROID) 112 mcg tablet Take 1 tablet by mouth once daily. 90 tablet 3 ergocalciferol, vitamin D2, (VITAMIN D2 ORAL) Take by mouth. TURMERIC ORAL Take by mouth. amoxicillin (POLYMOX, AMOXIL) 500 mg capsule Take 4 capsules by mouth as directed. ONE HOUR PRIOR TO DENTAL WORK 4 capsule 3 CALCIUM ORAL Take by mouth. THERAPEUTIC MULTIVITAMIN TAB Take one tablet daily 0 nitrofurantoin monohydrate and macrocrystal (MACROBID) 100 mg capsule Take 1 capsule by mouth twice daily with meals for 5 days. 10 capsule 0 gabapentin (NEURONTIN) 100 mg capsule take 1 capsule by mouth at bedtime 90 capsule 1 hydrocortisone 2.5 % cream Apply to affected area two times daily as needed for 1-2 weeks after 5% fluorouracil cream (Patient not taking: Reported on 11/04/2021 ) 30 g 0 Fluorouracil (EFUDEX) 5 % cream Apply 2x daily to forehead and temples for 2 weeks. May stop for few days or decrease to once daily for discomfort (Patient not taking: Reported on 11/04/2021 ) 40 g 0 diclofenac sodium (VOLTAREN) 1 % topical gel Apply 4 g to affected area four times daily. 100 g 1 No current facility-administered medications for this visit. PAST SURGICAL HISTORY Procedure Laterality Date ADENOIDECTOMY PRIMARY <AGE 10 remote Adenoidectomy ARTHRP ACETBLR/PROX FEM PROSTC AGRFT/ALGRFT Right 06/02/2016 Hip replacement, total BLEPHAROPLASTY UPPER EYELID 04/2008 Blepharoplasty, upper-bilateral COLONOSCOPY & POLYPECTOMY [id number] Dr Nascimento- repeat due 2018 COLONOSCOPY FLX DX W/COLLJ SPEC WHEN PFRMD 12/10/01 Repeat in COLONOSCOPY FLX DX W/COLLJ SPEC WHEN PFRMD 10/07/2018 Colonoscopy CORRECT BUNION,SIMPLE 1996 BUNIONECTOMY bilateral DILATION & CURETTAGE DX&/THER NONOBSTETRIC Dilation & curettage LIG/TRNSXJ FLP TUBE ABDL/VAG APPR UNI/BI 1995 Tubal ligation BILATERAL NEUROPLASTY &/TRANSPOS MEDIAN NRV CARPAL TUNNE 06/2009 Carpal tunnel decomp bilaterally done @ [facility] PAST SURGICAL HISTORY OF 1979 OPENED RIGHT OVARIAN CYST PAST SURGICAL HISTORY OF 11/2008 foot and toe PAST SURGICAL HISTORY OF 2010 left trigger thumb THYROIDECTOMY TOTAL/COMPLETE 10-22-12 total for nodules/no cancer TONSILLECTOMY PRIMARY/SECONDARY <AGE 10 remote Tonsillectomy FAMILY HISTORY Problem Relation Age of Onset Stroke Mother Arthritis Mother Stroke Paternal Grandfather AND DIABETES Diabetes Paternal Grandfather Diabetes Paternal Grandmother Hypertension Brother Hypertension Brother Social History Tobacco Use Smoking status: Never Smokeless tobacco: Never Substance Use Topics Alcohol use: No Drug use: No Objective BP 134/86 Pulse 78 Temp 36.4 C (97.5 F) (Tympanic) Resp 14 Wt 77.6 kg (171 lb) LMP 01/22/2005 (LMP Unknown) BMI 29.35 kg/m Physical Exam Vitals reviewed. Constitutional: Appearance: Normal appearance. HENT: Head: Normocephalic and atraumatic. Cardiovascular: Rate and Rhythm: Normal rate and regular rhythm. Heart sounds: Normal heart sounds. Pulmonary: Effort: Pulmonary effort is normal. Breath sounds: Normal breath sounds. Abdominal: General: Abdomen is flat. Palpations: Abdomen is soft. Tenderness: There is no abdominal tenderness. There is no right CVA tenderness, left CVA tenderness or guarding. Musculoskeletal: Cervical back: Neck supple. Skin: General: Skin is warm and dry. Neurological: Mental Status: She is alert. Assessment and Plan ASSESSMENT/PLAN: 1. Dysuria - ICD9: 788.1, ICD10: R30.0 (primary diagnosis) acute - UA positive for lynn esterase and hematuria - Send urine for culture - Begin treatment with Macrobid 100 mg BID for 5 days - UA DIP, URINE (POC) - URINE CULTURE 2. Gross hematuria - ICD9: 599.71, ICD10: R31.0 If urine culture negative recommended she follow-up with PCP for repeat urine. Hilary Metzger PA-C documented in this encounter [facility] 11-03-2022 Miscellaneous Notes Called pt let her know of message below. She voices understanding. Pt has not been seen in over a year. Needs appointment and blood work to refill. Thank you, Nadege Tobias APRN.CNP The following approved medication requests have been transmitted electronically. Requested Prescriptions Refused Prescriptions Disp Refills gabapentin (NEURONTIN) 100 mg capsule 90 capsule 1 Sig: Take 1 capsule by mouth daily at bedtime for 30 days. Refused By: NADEGE TOBIAS Reason for Refusal: Patient needs appointment Nadege Tobias APRN.CNP Patient has been identified by name and date of : Yes Requested Prescriptions Pending Prescriptions Disp Refills gabapentin (NEURONTIN) 100 mg capsule 90 capsule 1 Sig: Take 1 capsule by mouth daily at bedtime for 30 days. RX INSTRUCTIONS: Patient aware RX will be sent to pharmacy. No need to notify patient. Patient last office visit: 10/25/21 Patient next office visit: none scheduled Chichi Loredo MA documented in this encounter [facility] 04-14-2022 Miscellaneous Notes April 14, 2022 PID: [id number] Alfreda Padgett [address] [place] [address] Dear Ms. Padgett, We are pleased to inform you that the results of your recent breast imaging exam on 04/14/2022 are normal. Early detection of cancer is very important. We also understand recommendations regarding breast cancer screening are controversial. Please discuss with your primary care provider which strategy is best for you and whether a mammogram is right for you. Your imaging studies and report will be kept on file at [facility] as part of your permanent medical record and are available for your continuing care. Thank you for allowing us to help in meeting your health care needs. Sincerely, Dr. Mchugh Interpreting Radiologist [facility] (Normal over 40) documented in this encounter [facility] 04-14-2022 History of Presen t illness Narrative Radiology Service Progress Note PATIENT NAME: Alfreda Padgett DATE OF SERVICE: April 14, 2022 TIME: 10:56 AM PATIENT IDENTITY VERIFICATION COMPLETED USING TWO (2) IDENTIFIERS: Name and Date of confirmed by patient verbally. FALL SCREENING: Has the patient had 2 falls in the last year or 1 fall with injury or currently using an Ambulatory Assistive Device (Walker, Cane, Wheelchair, Crutches, etc.)? No PATIENT GENDER DATA: Female. status: : No status: NO. PATIENT RELEVANT IMPLANT DATA REVIEWED: Not Applicable RADIOLOGY DEPARTMENT: Mammography PERIPHERAL IV DATA: Not applicable SIGNED BY: RT Cathy(R) April 14, 2022 10:56 AM documented in this encounter [facility] 01-27-2022 Miscellaneous Notes Mammogram ordered, please help her schedule appt Tushar Caballero DO Patient is requesting mammogram on [facility], needs order placed. Please review, thank you. LYN Gardner January 24, 2022 5:14 PM documented in this encounter [facility] 12-18-2021 Miscellaneous Notes The following approved medication requests have been transmitted electronically. Signed Prescriptions Disp Refills gabapentin (NEURONTIN) 100 mg capsule 30 capsule 0 Sig: take 1 capsule by mouth at bedtime RED: No Authorizing Provider: NADEGE HAWKINS Ordering User: MARGARET POOLE APRN.CNP PDMP website checked and validated. All prescriptions have been APPROPRIATELY filled. No suspicious activity was identified. 12/18/2021 by Margaret Poole CNP. RAHUL: 10/25/2021 Last refill: 11/24/2021 QTY: 30 Refills: 0 Patient's request for medication is as follows: Pending Prescriptions Disp Refills GABAPENTIN 100 MG CAPSULE 30 capsule 0 Sig: take 1 capsule by mouth at bedtime RED: Yes Please approve the above prescription(s) to electronically send to pharmacy. Gunnar Kaminski Ma documented in this encounter [facility] 11-12-2021 Miscellaneous Notes Script sent. I don't see any requests in her chart. Please review refill policy w/ patient. Refill requests are not accepted from the pharmacy, but must be requested by the patient. Sonal Berry APRN.BULMARO Patient only has 1 left. Patient has been identified by name and date of : Yes Patient phones for refill(s): Pending Prescriptions Disp Refills LEVOTHYROXINE 112 MCG TABLET 90 tablet 3 Sig: Take 1 tablet by mouth once daily. RED: No Date of last office visit in primary care: 10/25/21 Please advise. Thank you. Glendy Acuna LPN documented in this encounter [facility] 11-06-2021 Miscellaneous Notes Pt. informed via My Chart. Becka Stanley LPN Please let patient know that PVR testing was negative for any signs of PAD or decreased blood flow. Continue with regimen as discussed. Nadege Hawkins APRN.[employer] SYSTEM INSTALLER documented in this encounter [facility] 11-04-2021 Matilda Metcalf - 11/04/2021 8:52 AM EDT Images from the original note were not included. What is Plantar Fasciitis? Plantar fasciitis is the most common cause of heel pain. The pain is caused by inflammation of the plantar fascia. If you strain your plantar fascia, it becomes weak, swollen and irritated (inflamed). The resulting pain may be isolated in the heel or may appear at different points on the bottom of the foot, from time to time; it may occur in one foot or both. Some think that plantar fasciitis pain is caused by irritation of nerves from tissue swelling or inflammation, but it is debatable. Plantar fasciitis is common in middle-aged people; it also occurs in younger people who are on their feet a lot, such as athletes or soldiers. The plantar fascia is a strong band of connective tissue that extends from the base of the toes, along the bottom of the foot, to the bottom of the heel (calcaneous bone); it acts like a bowstring to maintain the arch of the foot. What are heel spurs? The inflammatory reaction of the heel bone may produce spike-like projections of new bone, called heel spurs. The spurs sometimes show on X-rays. They neither cause the initial pain nor do they cause the initial problem. However, later, having to walk on spurs may cause sharp pain. What causes plantar fasciitis? Plantar fasciitis is caused by straining the ligament that supports your arch. Repeated strain can cause tiny tears in the ligament. These lead to pain and swelling. During walking, the plantar fascia experiences tension up to twice the body weight with each step. While this is normal, those who spend much time on their feet, such as nurses, condenser setter/waiters, and mail carriers, often experience plantar fasciitis. Athletes involved in tennis or other racquet sports, race walking, jogging or running also show a higher incidence of plantar fasciitis than do those participating in other activities. Thus, it's clear that plantar fasciitis is predominantly an overuse injury. In fact, any activity that results in prolonged tension and stress on the plantar fascia may cause plantar fasciitis. It is possible that changes in footwear may play a role in causing plantar fasciitis, no matter what activity is occurring. Those who are overweight are prone to plantar fasciitis. This is true even for sedentary people who get little physical activity. Abnormalities of the foot and ankle joints may predispose some individuals to development of plantar fasciitis (specifically, over pronation of the subtalar joint). Contributing Factors * Flat feet * Toe running, hill running * Sudden weight increase * High-arched, rigid feet * Soft terrain, e.g. running on sand * Obesity * Pronated feet (rolled inward) * Sudden increase in activity * Family tendency * Poor shoe support * Worn out or poorly fitted shoes * Increasing age * Walking, standing or running for long periods of time, especially on hard surfaces. How is the Injury Treated? Rest Your Feet: Limit, or if possible, stop activities that are causing your heel pain. Try to avoid running or walking on hard surfaces, such as concrete. Use pain as your guide. If your foot is too painful, rest it. Ice: Ice the sore area for 30 to 60 minutes, several times a day, to reduce inflammation and relieve pain. Apply a plastic bag of crushed ice (or a bag of frozen peas) over a towel. Ice the sore area for 15 minutes after activity/exercise. Application of heat is not generally recommended, as heat expands the bone and connective tissue, perhaps exerting greater pressure on nerves and thereby increasing pain. If heat is used, follow it with ice. Medication: If your condition developed recently, anti-inflammatory/analgesic medication, combined with heel pads (see below) may be all that is necessary to relieve pain and to reduce inflammation. If no pain relief has occurred after 2-3 weeks, however, your doctor may inject either cortisone or local anesthetic directly into the tender area. Exercises: Do simple exercises, such as calf stretches and towel stretches (see below) several times a day, especially when you first get up in the morning. These can help your ligament become more flexible and strengthen the muscles that support your arch. Shoes: Poorly fitting shoes can cause plantar fasciitis. The best type of shoe to wear is a good walking or running shoe with good shock absorption and excellent arch support. You should choose the one that fits the best. [place] with your athletic shoes to find a pair that is comfortable and causes fewer symptoms. Put your shoes on as soon as you get out of bed; going barefoot or wearing slippers may make your pain worse. Good brands include (but are not limited to): New Balance, Asics, Saucony, SAS and Merrel s. Taping: Your doctor may tape your foot to maintain the arch. This takes some of the tension off the plantar fascia. Weight Loss: If your weight is putting extra stress on your feet, your doctor may encourage you to try a weight-loss program. Orthotics: An orthotic insole is a molded piece of rubber, plastic, or other material that you insert into your shoe. It corrects the alignment of your foot and cushions your foot from excessive pounding. These may be prescription or non-prescription. Prescription orthotics are custom-fitted and may fit better and control pain better, but are very expensive. Night Splints: A night splint holds the foot with the toes pointed up and the ankle at a 90-degree angle. This position applies a constant, gentle stretch to the plantar fascia. Corticosteroid Shots: Steroids may be injected into the tender area to reduce inflammation. REHAB Exercises to stretch the plantar fascia, the calf muscles, and the Achilles tendon. Tightness of the muscles of the calves may contribute to plantar fasciitis, so stretching the calf muscles is important to rehabilitation, as is stretching of the plantar fascia itself. Plantar fascial stretches Assisted Dorsiflexion/Plantar Fascia Stretch: Sit on the floor or ground, barefoot, with both legs outstretched. Use a towel or elastic band and wrap it around the ball (and not the toes) of the affected foot. Use the towel or elastic band to provide resistance to upward movement of the forefoot. Pull foot upward (toward your body) with the help of the elastic band or towel, and then return to the starting position. Ten repetitions are recommended. Perform the sequence at least three times a day. Alternate Plantar Fascia Stretch: Sit upright in a chair, barefoot. Place the ankle of the affected foot on your opposite knee. Using the same hand as the affected foot, reach across and grab the toes. Flex the ankle toward and pull the toes toward the [place]. To test the stretch, place the thumb of your hand on the bottom of the foot. You should be able to feel the cord-like plantar fascia, running the length of the foot. Hold the stretch for a count of 10, then relax. Repeat 10 times. Do the sequence at least three times a day. Achilles/Calf Stretches Strengthening the muscles of the calves may contribute to successful rehabilitation of plantar fasciitis, as well as prevent reoccurrence. The exercises below will help strengthen the calf muscles. Calf and Achilles Tendon Stretch (Gastrocnemius Stretch): Face a wall, standing an arm's length away. Place one foot back. Place both hands on the wall. Bend the elbows and knee of your forward leg, keeping the heel of the backward foot on the floor and keeping your body straight (aligned), until your forehead nearly touches the wall, or until significant stretch is felt in the muscles of the calf of the backward leg. Hold this position for 10 to 15 seconds. Extend elbows (straighten your arms and stand upright again) and maintain this position for 10 seconds. Repeat this cycle 15 to 20 times. Switch legs and repeat the exercise. Powerstep Original Full length. Can purchase at [employer] here in [employer], [employer] in [place] or [place]. Also can find in [employer] in [facility]. Powersteps can also be purchased online, starting around $25.00 If you have a metatarsal or dancer pad for your feet apply the pad directly to the insole so you can interchange between your shoes. Find a shoe with a removable insole and take this out and replace with your powerstep insole. Always bring powersteps with you when shopping for shoes so that you can make sure that everything fits well together documented in this encounter [facility] 11-04-2021 History of Presen t illness Narrative Consultation requested by Dr. Hawkins for an opinion regarding left pain. My final recommendations will be communicated back to the requesting physician by way of shared Medical record or letter to requesting physician via US mail. Initial Podiatric Office Visit: Chief Complaint: This 66 year old female who presents with chief complaint:left heel pain HPI Patient presents to clinic with complaint of left plantar heel pain. The pain has been present for over one year however, the pain would come and go. Patient states the pain would be present whenever she applies weight to the foot or after periods of rest. She had plantar fasciitis in the past and was treated with injection. Lately, this patient was prescribed mobic and gabapentin and she has noticed that helping with her foot. Patient is not currently doing any stretching or icing for the left foot. She does have issue with her left 2nd toenail. PAIN EVALUATION 11/04/2021 0834 Pain Level: 2 Pain Location: Foot-Left Description: Sharp Duration Amount of Time: 12 Duration Units: Months Frequency: Intermittent Intervention/Comfort measure: Cold;Medication Comments: Meloxicam Hemoglobin A1C (%) Date Value 10/25/2021 5.8 05/20/2021 5.8 06/08/2019 6.0 PCP: Tushar Caballero DO PAST MEDICAL HISTORY Diagnosis Date Broken finger right pinky finger Eczema Hypothyroidism, iatrogenic s/p thryoidectomy for MNG Iron deficiency anemia, unspecified pre-menopausal Multinodular goiter (nontoxic) Osteoarthritis, generalized Plantar fasciitis Current Outpatient Medications Medication Sig gabapentin (NEURONTIN) 100 mg capsule Take 1 capsule by mouth daily at bedtime for 30 days. meloxicam (MOBIC) 15 mg tablet Take 1 tablet by mouth once daily. With food. levothyroxine (SYNTHROID) 112 mcg tablet Take 1 tablet by mouth once daily. diclofenac sodium (VOLTAREN) 1 % topical gel Apply 4 g to affected area four times daily. ergocalciferol, vitamin D2, (VITAMIN D2 ORAL) Take by mouth. TURMERIC ORAL Take by mouth. amoxicillin (POLYMOX, AMOXIL) 500 mg capsule Take 4 capsules by mouth as directed. ONE HOUR PRIOR TO DENTAL WORK CALCIUM ORAL Take by mouth. THERAPEUTIC MULTIVITAMIN TAB Take one tablet daily hydrocortisone 2.5 % cream Apply to affected area two times daily as needed for 1-2 weeks after 5% fluorouracil cream (Patient not taking: Reported on 11/04/2021 ) Fluorouracil (EFUDEX) 5 % cream Apply 2x daily to forehead and temples for 2 weeks. May stop for few days or decrease to once daily for discomfort (Patient not taking: Reported on 11/04/2021 ) No current facility-administered medications for this visit. ALLERGIES No Known Allergies PAST SURGICAL HISTORY Procedure Laterality Date ADENOIDECTOMY PRIMARY <AGE 10 remote Adenoidectomy ARTHRP ACETBLR/PROX FEM PROSTC AGRFT/ALGRFT Right 06/02/2016 Hip replacement, total BLEPHAROPLASTY UPPER EYELID 04/2008 Blepharoplasty, upper-bilateral COLONOSCOPY & POLYPECTOMY [id number] Dr Nascimento- repeat due 2018 COLONOSCOPY FLX DX W/COLLJ SPEC WHEN PFRMD 12/10/01 Repeat in COLONOSCOPY FLX DX W/COLLJ SPEC WHEN PFRMD 10/07/2018 Colonoscopy CORRECT BUNION,SIMPLE 1996 BUNIONECTOMY bilateral DILATION & CURETTAGE DX&/THER NONOBSTETRIC Dilation & curettage LIG/TRNSXJ FLP TUBE ABDL/VAG APPR UNI/BI 1995 Tubal ligation BILATERAL NEUROPLASTY &/TRANSPOS MEDIAN NRV CARPAL TUNNE 06/2009 Carpal tunnel decomp bilaterally done @ [facility] PAST SURGICAL HISTORY OF 1979 OPENED RIGHT OVARIAN CYST PAST SURGICAL HISTORY OF 11/2008 foot and toe PAST SURGICAL HISTORY OF 2010 left trigger thumb THYROIDECTOMY TOTAL/COMPLETE 10-22-12 total for nodules/no cancer TONSILLECTOMY PRIMARY/SECONDARY <AGE 10 remote Tonsillectomy FAMILY HISTORY Problem Relation Age of Onset Stroke Mother Arthritis Mother Stroke Paternal Grandfather AND DIABETES Diabetes Paternal Grandfather Diabetes Paternal Grandmother Hypertension Brother Hypertension Brother Social History Tobacco Use Smoking status: Never Smoker Smokeless tobacco: Never Used Substance Use Topics Alcohol use: No Drug use: No REVIEW OF SYSTEMS GENERAL: Negative for Malaise, significant weight loss, fever RESPIRATORY: Negative for cough, wheezing and shortness of breath CARDIOVASCULAR: Negative for chest pain, leg swelling and palpitations GI: Negative for abdominal discomfort, blood in stools or black stools and change in bowel habits : Negative for dysuria, frequency and incontinence MUSCULOSKELETAL: Negative for joint pain or swelling, back pain, and muscle pain. SKIN: Negative for lesions, rash, and itching. HEMATOLOGY/LYMPHOLOGY Negative for prolonged bleeding, bruising easily, and swollen nodes. ENDOCRINE: Negative for cold or heat intolerance, polyuria, polydipsia and goiter. NEURO: negative Physical Exam: Constitutional: Pt is a well developed 66 year old female who is alert, oriented and cooperative Eyes: Following during examination. No redness or drainage. Respiratory: RR normal and nonlabored. Even breathing. No evidence of distress or shortness of breath. Psychology: Patient is engaged during conversation. Normal affect and mood. Does not appear depressed or anxious during encounter. Vascular: Dorsalis pedis and posterior tibial pulses palpable as b/l Capillary Fill time < 5 seconds to digits 1-5 b/l Skin temperature warm to warm proximal to distal b/l Hair growth present to digits Neurological: intact light touch/epicritic sensation Vibratory sensation intact to hallux b/l intact protective sensation no significant neurological deficits Dermatological: B/l 2nd toenail shows thickening. Webspaces clean and dry 1-4 b/l. Skin appears well hydrated and supple. good color, texture, turgor. No open lesions present. No callosities present. Musculoskeletal/Orthopaedic: Patient has no pain to palpation of left heel Foot type is pronated structurally AJ ROM is full with knee extended and flexed 1st MPJ is full when loaded and no pain or crepitus are noted with ROM. MTJ, STJ are full and free of pain and crepitus. +5/5 muscle strength dorsiflexion, plantarflexion, inversion, eversion b/l Long 2nd toe is noted b/l Radiographs: 3 views left foot reviewed November 04, 2021: I have personally reviewed and interpreted these XR myself: Plantar heel spur is noted to left foot. B/l bunion correction ASSESSMENT: (M72.2) Plantar fasciitis of left foot (primary encounter diagnosis) (M79.672, G89.29) Heel pain, chronic, left onychodystrophy PLAN: 1. Initial Office Visit - A thorough review of the patient's PMH and Podiatric physical exam was completed. 2. Patient advised to perform stretching excercises, icing, and to make appropriate shoe gear changes to include wearing athletic-type shoes with supportive insoles. No barefoot walking. Patient also given written instructions on how to correctly perform the stretching of the achilles tendon/calf stretches, and the heel spur/plantar fasciitis regimen. 3. Patient advised to seek wide, deep toe box, accomodative, comfortable, lace-up, athletic/walking type footwear that includes motion control characteristics for support and cushion that need to be worn at all times when weight-bearing. Shoes should be tested for torsional stability as well as proper bending at the toebox rather than at the midfoot. Good quality shoes such as, but not limited to, New Balance or Asics are examples of more proper foot gear. 4. Patient recommended to get powerstep insoles for proper support of the arch in order to alleviate the tension and stress on the plantar fascia associated with normal daily walking. Patient advised that these modalities used in conjunction with stretching and icing are able to alleviate most symptoms from this condition. 5. RTC prn. discussed next step of custom FO, night splint or injection if symptoms do not markedly improve 6. Refilled mobic 7. Discussed deformity of b/l 2nd toe. Although fungus is possible, given the other nails are spared, suspect this is due to long 2nd toe. Recommend fitting shoes to 2nd toenail. Left 2nd toneail debrided with dremmel. 8. toespacer provided for left first interspace MELLO Neumann DPM Podiatry [address] [facility] [address] Dept: [phone] Dept AMB ROOMING INTAKE FLOWSHEET DATA Pain Pain Level: 2 Pain Location: Foot-Left Description: Sharp Duration Amount of Time: 12 Duration Units: Months Frequency: Intermittent Intervention/Comfort measure: Cold, Medication Comments: Meloxicam documented in this encounter [facility] 10-30-2021 Miscellaneous Notes Noted. Thank you. Nadege Hawkins APRN.CNP ummary: Podi Request Scheduled PT on 11/04/21 at 8:30 for a consult to podiatry. Please assist with scheduling Suly Youngblood Ma Referral placed. Please assist in scheduling. Nadege Hawkins APRN.CNP Pt. informed would like referred to Podiatry. Becka Stanley LPN Please let patient know that x-ray of foot did show: mild degenerative changes and calcaneal enthesopathy. This confirms her suspicion for a heel spur. The mobic NSAID medication prescribed at her appointment will help with the discomfort. I can also refer her to podiatry to see further options if agreeable. The rest of blood work and scans were relayed via [employer]. Nadege Hawkins APRN.BULMARO documented in this encounter [facility] 06-12-2020 Note HNO ID: [id number] Author: Afua QuintanaCtKARISHMA Howe Service: ? Author Type: Clinical Senior Architect Type: Progress Notes Filed: 06/12/2020 8:13 AM Note Text: Radiology Service Progress Note PATIENT NAME: Alfreda Padgett DATE OF SERVICE: June 12, 2020 TIME: 8:12 AM PATIENT IDENTITY VERIFICATION COMPLETED USING TWO (2) IDENTIFIERS: Name and Date of confirmed by patient verbally. FALL SCREENING: Has the patient had 2 falls in the last year or 1 fall with injury or currently using an Ambulatory Assistive Device (Walker, Cane, Wheelchair, Crutches, etc.)? No PATIENT GENDER DATA: Female. status: : No status: NO. PATIENT RELEVANT IMPLANT DATA REVIEWED: Not Applicable RADIOLOGY DEPARTMENT: General X-ray: Exam(s) Completed: Pelvis X-Ray: Pelvis General AP PERIPHERAL IV DATA: Not applicable SIGNED BY: KARISHMA Wright June 12, 2020 8:12 AM [facility] documented as of this encounter (statuses as of 10/23/2021) [facility] History of Past illness Narrative* Problem Noted Date Resolved Date Hip arthritis 06/02/2016 08/07/2016 Primary osteoarthritis of right hip 05/27/2016 08/07/2016 Viral warts, unspecified 03/08/2008 013 Hematuria 03/08/2008 06/18/2010 Plantar fasciitis 01/06/2013 documented as of this encounter (statuses as of 10/30/2021) [facility] History of Past illness Narrative* Problem Noted Date Resolved Date Hip arthritis 06/02/2016 08/07/2016 Primary osteoarthritis of right hip 05/27/2016 08/07/2016 Viral warts, unspecified 03/08/2008 013 Hematuria 03/08/2008 06/18/2010 Plantar fasciitis 01/06/2013 documented as of this encounter (statuses as of 11/04/2021) [facility] of Past illness Narrative* Problem Noted Date Resolved Date Hip arthritis 06/02/2016 08/07/2016 Primary osteoarthritis of right hip 05/27/2016 08/07/2016 Viral warts, unspecified 03/08/2008 013 Hematuria 03/08/2008 06/18/2010 Plantar fasciitis 01/06/2013 documented as of this encounter (statuses as of 11/06/2021) [facility] of Past illness Narrative* Problem Noted Date Resolved Date Hip arthritis 06/02/2016 08/07/2016 Primary osteoarthritis of right hip 05/27/2016 08/07/2016 Viral warts, unspecified 03/08/2008 013 Hematuria 03/08/2008 06/18/2010 Plantar fasciitis 01/06/2013 documented as of this encounter (statuses as of 11/08/2021) [facility] of Past illness Narrative* Problem Noted Date Resolved Date Hip arthritis 06/02/2016 08/07/2016 Primary osteoarthritis of right hip 05/27/2016 08/07/2016 Viral warts, unspecified 03/08/2008 013 Hematuria 03/08/2008 06/18/2010 Plantar fasciitis 01/06/2013 documented as of this encounter (statuses as of 11/13/2021) [facility] of Past illness Narrative* Problem Noted Date Resolved Date Hip arthritis 06/02/2016 08/07/2016 Primary osteoarthritis of right hip 05/27/2016 08/07/2016 Viral warts, unspecified 03/08/2008 013 Hematuria 03/08/2008 06/18/2010 Plantar fasciitis 01/06/2013 documented as of this encounter (statuses as of 12/18/2021) [facility] of Past illness Narrative* Problem Noted Date Resolved Date Hip arthritis 06/02/2016 08/07/2016 Primary osteoarthritis of right hip 05/27/2016 08/07/2016 Viral warts, unspecified 03/08/2008 013 Hematuria 03/08/2008 06/18/2010 Plantar fasciitis 01/06/2013 documented as of this encounter (statuses as of 01/30/2022) [facility] of Past illness Narrative* Problem Noted Date Resolved Date Hip arthritis 06/02/2016 08/07/2016 Primary osteoarthritis of right hip 05/27/2016 08/07/2016 Viral warts, unspecified 03/08/2008 013 Hematuria 03/08/2008 06/18/2010 Plantar fasciitis 01/06/2013 documented as of this encounter (statuses as of 04/15/2022) [facility] of Past illness Narrative* Problem Noted Date Resolved Date Hip arthritis 06/02/2016 08/07/2016 Primary osteoarthritis of right hip 05/27/2016 08/07/2016 Viral warts, unspecified 03/08/2008 013 Hematuria 03/08/2008 06/18/2010 Plantar fasciitis 01/06/2013 documented as of this encounter (statuses as of 04/16/2022) [facility] of Past illness Narrative* Problem Noted Date Resolved Date Hip arthritis 06/02/2016 08/07/2016 Primary osteoarthritis of right hip 05/27/2016 08/07/2016 Viral warts, unspecified 03/08/2008 013 Hematuria 03/08/2008 06/18/2010 Plantar fasciitis 01/06/2013 documented as of this encounter (statuses as of 11/03/2022) [facility] of Past illness Narrative* Problem Noted Date Resolved Date Hip arthritis 06/02/2016 08/07/2016 Primary osteoarthritis of right hip 05/27/2016 08/07/2016 Viral warts, unspecified 03/08/2008 013 Hematuria 03/08/2008 06/18/2010 Plantar fasciitis 01/06/2013 documented as of this encounter (statuses as of 01/21/2023) [facility] of Past illness Narrative* Problem Noted Date Resolved Date Hip arthritis 06/02/2016 08/07/2016 Primary osteoarthritis of right hip 05/27/2016 08/07/2016 Viral warts, unspecified 03/08/2008 013 Hematuria 03/08/2008 06/18/2010 Plantar fasciitis 01/06/2013 documented as of this encounter (statuses as of 01/26/2023) [facility] of [facility] Narrative* Problem Noted Date Diagnosed Date Resolved Date Hip arthritis 06/02/2016 08/07/2016 Primary osteoarthritis of right hip 05/27/2016 08/07/2016 Viral warts, unspecified 03/08/200801/2013 Hematuria 03/08/2008 06/18/2010 Plantar fasciitis 01/06/2013 documented as of this encounter (statuses as of 02/19/2023) [facility] of [facility] Narrative* Problem Noted Date Diagnosed Date Resolved Date Hip arthritis 06/02/2016 08/07/2016 Primary osteoarthritis of right hip 05/27/2016 08/07/2016 Viral warts, unspecified 03/08/200801/2013 Hematuria 03/08/2008 06/18/2010 Plantar fasciitis 01/06/2013 documented as of this encounter (statuses as of 02/23/2023) [facility] of [facility] Narrative* Problem Noted Date Diagnosed Date Resolved Date Hip arthritis 06/02/2016 08/07/2016 Primary osteoarthritis of right hip 05/27/2016 08/07/2016 Viral warts, unspecified 03/08/200801/2013 Hematuria 03/08/2008 06/18/2010 Plantar fasciitis 01/06/2013 documented as of this encounter (statuses as of 03/06/2023) [facility] Narrative* Problem Noted Date Diagnosed Date Resolved Date Hip arthritis 06/02/2016 08/07/2016 Primary osteoarthritis of right hip 05/27/2016 08/07/2016 Viral warts, unspecified 03/08/200801/2013 Hematuria 03/08/2008 06/18/2010 Plantar fasciitis 01/06/2013 documented as of this encounter (statuses as of 03/09/2023) [facility] of [facility] illness Narrative* Problem Noted Date Diagnosed Date Resolved Date Hip arthritis 06/02/2016 08/07/2016 Primary osteoarthritis of right hip 05/27/2016 08/07/2016 Viral warts, unspecified 03/08/200801/2013 Hematuria 03/08/2008 06/18/2010 Plantar fasciitis 01/06/2013 documented as of this encounter (statuses as of 03/10/2023) [facility] of [facility] illness Narrative* Problem Noted Date Diagnosed Date Resolved Date Hip arthritis 06/02/2016 08/07/2016 Primary osteoarthritis of right hip 05/27/2016 08/07/2016 Viral warts, unspecified 03/08/200801/2013 Hematuria 03/08/2008 06/18/2010 Plantar fasciitis 01/06/2013 documented as of this encounter (statuses as of 03/12/2023) [facility] of [facility] illness Narrative* Problem Noted Date Diagnosed Date Resolved Date Hip arthritis 06/02/2016 08/07/2016 Primary osteoarthritis of right hip 05/27/2016 08/07/2016 Viral warts, unspecified 03/08/200801/2013 Hematuria 03/08/2008 06/18/2010 Plantar fasciitis 01/06/2013 documented as of this encounter (statuses as of 03/25/2023) [facility] of Past illness Narrative* Problem Noted Date Diagnosed Date Resolved Date Hip arthritis 06/02/2016 08/07/2016 Primary osteoarthritis of right hip 05/27/2016 08/07/2016 Viral warts, unspecified 03/08/200801/2013 Hematuria 03/08/2008 06/18/2010 Plantar fasciitis 01/06/2013 documented as of this encounter (statuses as of 03/27/2023) [facility] of [facility] illness Narrative* Problem Noted Date Diagnosed Date Resolved Date Hip arthritis 06/02/2016 08/07/2016 Primary osteoarthritis of right hip 05/27/2016 08/07/2016 Viral warts, unspecified 03/08/200801/2013 Hematuria 03/08/2008 06/18/2010 Plantar fasciitis 01/06/2013 documented as of this encounter (statuses as of 04/20/2023) [facility] of [facility] Narrative* Problem Noted Date Diagnosed Date Resolved Date Hip arthritis 06/02/2016 08/07/2016 Primary osteoarthritis of right hip 05/27/2016 08/07/2016 Viral warts, unspecified 03/08/200801/2013 Hematuria 03/08/2008 06/18/2010 Plantar fasciitis 01/06/2013 documented as of this encounter (statuses as of 04/20/2023) [facility] of [facility] illness Narrative* Problem Noted Date Diagnosed Date Resolved Date Hip arthritis 06/02/2016 08/07/2016 Primary osteoarthritis of right hip 05/27/2016 08/07/2016 Viral warts, unspecified 03/08/200801/2013 Hematuria 03/08/2008 06/18/2010 Plantar fasciitis 01/06/2013 documented as of this encounter (statuses as of 05/02/2023) [facility] of [facility] illness Narrative* Problem Noted Date Diagnosed Date Resolved Date Hip arthritis 06/02/2016 08/07/2016 Primary osteoarthritis of right hip 05/27/2016 08/07/2016 Viral warts, unspecified 03/08/200801/2013 Hematuria 03/08/2008 06/18/2010 Plantar fasciitis 01/06/2013 documented as of this encounter (statuses as of 06/07/2023) [facility] of [facility] Narrative* Problem Noted Date Diagnosed Date Resolved Date Hip arthritis 06/02/2016 08/07/2016 Primary osteoarthritis of right hip 05/27/2016 08/07/2016 Viral warts, unspecified 03/08/200801/2013 Hematuria 03/08/2008 06/18/2010 Plantar fasciitis 01/06/2013 documented as of this encounter (statuses as of 06/07/2023) [facility] of Past illness Narrative* Problem Noted Date Diagnosed Date Resolved Date Hip arthritis 06/02/2016 08/07/2016 Primary osteoarthritis of right hip 05/27/2016 08/07/2016 Viral warts, unspecified 03/08/200801/2013 Hematuria 03/08/2008 06/18/2010 Plantar fasciitis 01/06/2013 documented as of this encounter (statuses as of 07/21/2023) [facility] note* Diagnosis Heel pain, chronic, left- Primary [facility] Diagnosis Plantar fasciitis of left foot- Primary Plantar fascial fibromatosis Heel pain, chronic, left [facility] Diagnosis Hypothyroidism, iatrogenic Other iatrogenic hypothyroidism [facility] Diagnosis Numbness and tingling of both lower extremities [facility] Diagnosis Encounter for screening mammogram for malignant neoplasm of breast- Primary Other screening mammogram [facility] Diagnosis Encounter for screening mammogram for malignant neoplasm of breast Other screening mammogram [facility] Diagnosis Numbness and tingling of both lower extremities [facility] Diagnosis Dysuria- Primary Gross hematuria [facility] Diagnosis Cystitis with hematuria- Primary Cystitis, unspecified [facility] Diagnosis Dysuria- Primary [facility] Diagnosis Acute cystitis with hematuria- Primary Acute cystitis [facility] Diagnosis Hypothyroidism, iatrogenic- Primary Other iatrogenic hypothyroidism Prediabetes Other abnormal glucose Vitamin D deficiency, unspecified Dyslipidemia Other and unspecified hyperlipidemia Well adult exam Routine general medical examination at a health care facility documented in this encounter [facility] note* Diagnosis Recurrent UTI (urinary tract infection)- Primary Urinary tract infection, site not specified Encounter for screening mammogram for malignant neoplasm of breast Other screening mammogram Hypothyroidism, iatrogenic Other iatrogenic hypothyroidism Groin discomfort, right Plantar fasciitis Plantar fascial fibromatosis [facility]* Diagnosis Gross hematuria- Primary Recurrent UTI (urinary tract infection) Urinary tract infection, site not specified History of nephrolithiasis Personal history of urinary calculi [facility] Diagnosis Gross hematuria- Primary Recurrent UTI (urinary tract infection) Urinary tract infection, site not specified Nephrolithiasis Calculus of kidney Rectocele [facility]* Diagnosis Gross hematuria documented in this encounter [facility] note* Diagnosis Encounter for screening mammogram for malignant neoplasm of breast Other screening mammogram [facility] Diagnosis Encounter for immunization- Primary Need for other specified prophylactic vaccination against single bacterial disease documented in this encounter [facility] for referral (narrative)* Diagnostic Procedure Only (Routine) - Authorized Specialty Diagnoses / Procedures Referred By Hortencia archer Referred To Contact [facility] Diagnoses Encounter for screening mammogram for malignant neoplasm of breast Procedures MORA SCREENING W RENEA SCREENING DIGITAL BREAST TOMOSYNTHESIS BI SCREENING MAMMOGRAPHY BI 2-VIEW BREAST INC Tushar Conteh DO [address] [place] [address] [facility] [address] [place] [id number] Referral ID Status Reason Start Date Expiration Date Visits Requested Visits Authorized [id number] Authorized Auto-Generat ed Referral 01/27/2022 02/26/2023 1 1 [facility] for referral (narrative)* Diagnostic Procedure Only (Routine) - Closed Specialty Diagnoses / Procedures Referred By Hortencia archer Referred To Contact [facility] Diagnoses Encounter for screening mammogram for malignant neoplasm of breast Procedures MORA SCREENING W RENEA SCREENING DIGITAL BREAST TOMOSYNTHESIS BI SCREENING MAMMOGRAPHY BI 2-VIEW BREAST INC CAD Tushar Caballero, [address] [place] [address] [facility] [address] [place] [address] Referral ID Status Reason Start Date Expiration Date V isits Requested Visits Authorized [id number] Closed Auto-Generate d Referral 01/27/2022 02/26/2023 1 1 [facility] for referral (narrative)* Diagnostic Procedure Only (Routine) - Authorized Specialty Diagnoses / Procedures Referred By Hortencia archer Referred To Contact [facility] Diagnoses Encounter for screening mammogram for malignant neoplasm of breast Procedures MORA SCREENING SCREENING MAMMOGRAPHY BI 2-VIEW BREAST INC CAD Nadege Tobias APRN.[employer] SYSTEM INSTALLER [address] [place] [address] [facility] [address] [place] [address] Referral ID Status Reason Start Date Expiration Date Visits Requested Visits Authorized [id number] Authorized Auto-Generat ed Referral 03/11/2023 04/09/2024 1 1 [facility] for referral (narrative)* Diagnostic Procedure Only (Routine) - Closed Specialty Diagnoses / Procedures Referred By Hortencia t Referred To Contact [facility] Diagnoses Encounter for screening mammogram for malignant neoplasm of breast Procedures MORA SCREENING SCREENING MAMMOGRAPHY BI 2-VIEW BREAST INC CAD Nadege Tobias APRN.[employer] INST[employer]ER [address] [place] [address] [facility] [address] [place] [address] Referral ID Status Reason Start Date Expiration Date V isits Requested Visits Authorized [id number] Closed Auto-Generate d Referral 03/11/2023 04/09/2024 1 1 [facility] for visit Narrative* Diagnostic Procedure Only (Routine) - Closed Specialty Diagnoses / Procedures Referred By Contac t Referred To Contact [facility] Diagnoses Encounter for screening mammogram for malignant neoplasm of breast Procedures MORA SCREENING W RENEA SCREENING DIGITAL BREAST TOMOSYNTHESIS BI SCREENING MAMMOGRAPHY BI 2-VIEW BREAST INC CAD Tushar Caballero L, DO [address] [place] [address] [facility] [address] [place] [address] Referral ID Status Reason Start Date Expiration Date V isits Requested Visits Authorized [id number] Closed Auto-Generate d Referral 01/27/2022 02/26/2023 1 1 [facility] for visit Narrative* Diagnostic Procedure Only (Routine) - Closed Specialty Diagnoses / Procedures Referred By Contac t Referred To Contact [facility] Diagnoses Encounter for screening mammogram for malignant neoplasm of breast Procedures MORA SCREENING SCREENING MAMMOGRAPHY BI 2-VIEW BREAST INC CAD Nadege Tobias, FERNANDEZ.[employer] INSTALLER [address] [place] [address] [facility] [address] [place] [address] Referral ID Status Reason Start Date Expiration Date V isits Requested Visits Authorized [id number] Closed Auto-Generate d Referral 03/11/2023 04/09/2024 1 1 [facility] Chief Complaint Chief Complaint Description Start Date right shoulder pain Preliminary chief co mplaint data, not yet signed by the author as of Advance Directives No Advanced Directives Records FoundDocuments on File Type Date Recorded Patient Product Specialist Expl anation Advance Directive(s) 10/07/2018 7:18 AM Advance Directive(s) 10/07/2018 7:21 AM Advance Directive(s) 09/22/2018 2:02 PM Advance Directive(s) 05/28/2017 8:49 AM Documents on File Type Date Recorded Patient Product Specialist Expl anation Advance Directive(s) 10/07/2018 7:18 AM Advance Directive(s) 10/07/2018 7:21 AM Advance Directive(s) 09/22/2018 2:02 PM Advance Directive(s) 05/28/2017 8:49 AM Documents on File Type Date Recorded Patient Product Specialist Expl anation Advance Directive(s) 10/07/2018 7:21 AM Documents on File Type Date Recorded Patient Product Specialist Expl anation Advance Directive(s) 10/07/2018 7:21 AM Assessments There may be information available, but it has not been provided by the sender. Review of System There may be information available, but it has not been provided by the sender. Family History There may be information available, but it has not been provided by the sender.No Family History Records FoundNo Family History Records FoundNo Family History Records Found History of Present Illness There may be information available, but it has not been provided by the sender. Summary Purpose Reason for Referral Specialty Diagnoses / Procedures Referred By Hortencia archer Referred To Contact Podiatry Diagnoses Heel pain, chronic, left Procedures CONSULT TO PODIATRY OFFICE/OUTPATIENT [facility] 60-74 MINUTES Nadege Hawkins APRN.[employer] IN[employer]ER [address] [place] [address] Referral ID Status Reason Start Date Expiration Date Visits Requested Visits Authorized [id number] Authorized PCP Requested Referral 10/28/2021 10/28/2022 1 1 Specialty Diagnoses / Procedures Referred By Hortencia archer Referred To Contact CT IMAGING Diagnoses Gross hematuria Procedures CT UROGRAM WO/W IVCON CT ABD & PELVIS W/O CONTRST 1+ BODY Aleksandr Lao MD [id number] [facility] [place] [address] Referral ID Status Reason Start Date Expiration Date Visits Requested Visits Authorized [id number] Authorized Auto-Generat ed Referral 03/26/2023 04/24/2024 1 1 Referral ID Status Reason Start Date Expiration Date V isits Requested Visits Authorized [id number] Closed Auto-Generate d Referral 03/26/2023 04/24/2024 1 1 Medications Administered Section Inactive Administered Medications - up to 3 most recent administrations Medication Order MAR Action Action Date Dose Rate Site cephALEXin 500 mg cap(s) (KEFLEX) 500 mg, ORAL, ONCE, 1 dose, On 04/20/23 at 1000, Please document the antimicrobial indication: Empiric Given 04/20/2023 9:32 AM EDT 500 mg lidocaine 2 % topical gel (XYLOCAINE) URETHRAL, ONCE, 1 dose, On 04/20/23 at 1000, FOR EXTERNAL USE ONLY APPLY TO: 6 ml Given 04/20/2023 9:45 AM EDT 6 mL Additional Source Comments Reason for Visit (unrecogniz ed section and content) Reason Comments Results Reason Comments left heel pain New Patient Heel spur on films Specialty Diagnoses / Procedures Referred By Contac t Referred To Contact Podiatry Diagnoses Heel pain, chronic, left Procedures CONSULT TO PODIATRY OFFICE/OUTPATIENT [facility] 60-74 MINUTES Nadege Hawkins, INTERNET CONSULTANT.[employer] INST[employer]ER [address] [place] [address] Referral ID Status Reason Start Date Expiration Date V isits Requested Visits Authorized [id number] Closed PCP Requested Referral 10/28/2021 10/28/2022 1 1 Reason Comments Results Reason Onset Date Comments Refill Request 11/12/2021 Reason Comments Refill Request Reason Comments Scheduling Reason Onset Date Comments Refill Request 10/31/2022 Reason Comments UTI Reason Comments UTI Frequency, burning x 1 day Reason Comments Follow Up UC follow up for UTI Reason Comments Physical Reason Comments Release Of Medical Records Reason Comments Consult UTI Specialty Diagnoses / Procedures Referred By Contac t Referred To Contact Urology Diagnoses Recurrent UTI (urinary tract infection) Procedures CONSULT TO UROLOGY OFFICE/OUTPATIENT [facility] 60-74 MINUTES Nadege Tobias, INTERNET CONSULTANT.[employer] INST[employer]ER [address] [place] [address] Referral ID Status Reason Start Date Expiration Date V isits Requested Visits Authorized [id number] Closed PCP Requested Referral 03/18/2023 03/17/2024 1 1 Reason Comments Cystoscopy-[address] Specialty Diagnoses / Procedures Referred By Contac t Referred To Contact CT IMAGING Diagnoses Gross hematuria Procedures CT UROGRAM WO/W IVCON CT ABD & PELVIS W/O CONTRST 1+ BODY Aleksandr Lao MD [address] [place] [address] [facility] [place] [address] Referral ID Status Reason Start Date Expiration Date V isits Requested Visits Authorized [id number] Closed Auto-Generate d Referral 03/26/2023 04/24/2024 1 1 Reason Comments immunization High dose flu INFORMATION SOURCE (unrecogn ized section and content) DATE CREATED AUTHOR AUTHOR'S ORGANPATRICIO ATION 07/08/2023 [facility] DATE CREATED AUTHOR AUTHOR'S ORGANIZ ATION 07/21/2023 [facility] Source Comments (unrecognize d section and content) In the event this informatio n is protected by the Federal Confidentiality of Alcohol and Drug Abuse Patient Records regulations: The Federal rules restrict any use of the information to criminally investigate or prosecute any alcohol or drug abuse patient.[facility] Center[facility] the event this information is protected by the Federal Confidentiality of Alcohol and Drug Abuse Patient Records regulations: The Federal rules restrict any use of the information to criminally investigate or prosecute any alcohol or drug abuse patient.[facility] CenterIn the event this information is protected by the Federal Confidentiality of Alcohol and Drug Abuse Patient Records regulations: The Federal rules restrict any use of the information to criminally investigate or prosecute any alcohol or drug abuse patient.[facility] CenterIn the event this information is protected by the Federal Confidentiality of Alcohol and Drug Abuse Patient Records regulations: The Federal rules restrict any use of the information to criminally investigate or prosecute any alcohol or drug abuse patient.[facility] CenterIn the event this information is protected by the Federal Confidentiality of Alcohol and Drug Abuse Patient Records regulations: The Federal rules restrict any use of the information to criminally investigate or prosecute any alcohol or drug abuse patient.[facility] CenterIn the event this information is protected by the Federal Confidentiality of Alcohol and Drug Abuse Patient Records regulations: The Federal rules restrict any use of the information to criminally investigate or prosecute any alcohol or drug abuse patient.[facility] CenterIn the event this information is protected by the Federal Confidentiality of Alcohol and Drug Abuse Patient Records regulations: The Federal rules restrict any use of the information to criminally investigate or prosecute any alcohol or drug abuse patient.[facility] CenterIn the event this information is protected by the Federal Confidentiality of Alcohol and Drug Abuse Patient Records regulations: The Federal rules restrict any use of the information to criminally investigate or prosecute any alcohol or drug abuse patient.[facility] CenterIn the event this information is protected by the Federal Confidentiality of Alcohol and Drug Abuse Patient Records regulations: The Federal rules restrict any use of the information to criminally investigate or prosecute any alcohol or drug abuse patient.[facility] CenterIn the event this information is protected by the Federal Confidentiality of Alcohol and Drug Abuse Patient Records regulations: The Federal rules restrict any use of the information to criminally investigate or prosecute any alcohol or drug abuse patient.[facility] CenterIn the event this information is protected by the Federal Confidentiality of Alcohol and Drug Abuse Patient Records regulations: The Federal rules restrict any use of the information to criminally investigate or prosecute any alcohol or drug abuse patient.[facility] CenterIn the event this information is protected by the Federal Confidentiality of Alcohol and Drug Abuse Patient Records regulations: The Federal rules restrict any use of the information to criminally investigate or prosecute any alcohol or drug abuse patient.[facility] CenterIn the event this information is protected by the Federal Confidentiality of Alcohol and Drug Abuse Patient Records regulations: The Federal rules restrict any use of the information to criminally investigate or prosecute any alcohol or drug abuse patient.[facility] CenterIn the event this information is protected by the Federal Confidentiality of Alcohol and Drug Abuse Patient Records regulations: The Federal rules restrict any use of the information to criminally investigate or prosecute any alcohol or drug abuse patient.[facility] CenterIn the event this information is protected by the Federal Confidentiality of Alcohol and Drug Abuse Patient Records regulations: The Federal rules restrict any use of the information to criminally investigate or prosecute any alcohol or drug abuse patient.[facility] CenterIn the event this information is protected by the Federal Confidentiality of Alcohol and Drug Abuse Patient Records regulations: The Federal rules restrict any use of the information to criminally investigate or prosecute any alcohol or drug abuse patient.[facility] CenterIn the event this information is protected by the Federal Confidentiality of Alcohol and Drug Abuse Patient Records regulations: The Federal rules restrict any use of the information to criminally investigate or prosecute any alcohol or drug abuse patient.[facility] CenterIn the event this information is protected by the Federal Confidentiality of Alcohol and Drug Abuse Patient Records regulations: The Federal rules restrict any use of the information to criminally investigate or prosecute any alcohol or drug abuse patient.[facility] CenterIn the event this information is protected by the Federal Confidentiality of Alcohol and Drug Abuse Patient Records regulations: The Federal rules restrict any use of the information to criminally investigate or prosecute any alcohol or drug abuse patient.[facility] CenterIn the event this information is protected by the Federal Confidentiality of Alcohol and Drug Abuse Patient Records regulations: The Federal rules restrict any use of the information to criminally investigate or prosecute any alcohol or drug abuse patient.[facility] CenterIn the event this information is protected by the Federal Confidentiality of Alcohol and Drug Abuse Patient Records regulations: The Federal rules restrict any use of the information to criminally investigate or prosecute any alcohol or drug abuse patient.[facility] CenterIn the event this information is protected by the Federal Confidentiality of Alcohol and Drug Abuse Patient Records regulations: The Federal rules restrict any use of the information to criminally investigate or prosecute any alcohol or drug abuse patient.[facility] CenterIn the event this information is protected by the Federal Confidentiality of Alcohol and Drug Abuse Patient Records regulations: The Federal rules restrict any use of the information to criminally investigate or prosecute any alcohol or drug abuse patient.[facility] CenterIn the event this information is protected by the Federal Confidentiality of Alcohol and Drug Abuse Patient Records regulations: The Federal rules restrict any use of the information to criminally investigate or prosecute any alcohol or drug abuse patient.[facility] CenterIn the event this information is protected by the Federal Confidentiality of Alcohol and Drug Abuse Patient Records regulations: The Federal rules restrict any use of the information to criminally investigate or prosecute any alcohol or drug abuse patient.[facility] CenterIn the event this information is protected by the Federal Confidentiality of Alcohol and Drug Abuse Patient Records regulations: The Federal rules restrict any use of the information to criminally investigate or prosecute any alcohol or drug abuse patient.[facility] CenterIn the event this information is protected by the Federal Confidentiality of Alcohol and Drug Abuse Patient Records regulations: The Federal rules restrict any use of the information to criminally investigate or prosecute any alcohol or drug abuse patient.[facility] Care Teams (unrecognized sec tion and content) Evaluator Transfer Students Relationship Specialty Start Date End Date Tushar Caballero, DO [address] [facility] [place] [address] PCP - General Family Practice 07/31/15 Evaluator Transfer Students Relationship Specialty Start Date End Date Tushar Caballero DO [address] [facility] [place] [address] PCP - General Family Practice 07/31/15 Evaluator Transfer Students Relationship Specialty Start Date End Date Tushar Caballero DO [address] [place] [address] PCP - General Family Practice 07/31/15 Evaluator Transfer Students Relationship Specialty Start Date End Date Tushar Caballero DO [address] [facility] [address] PCP - General Family Practice 07/31/15 Evaluator Transfer Students Relationship Specialty Start Date End Date Tushar Caballero DO [address] [facility] [place] [address] PCP - General Family Practice 07/31/15 Evaluator Transfer Students Relationship Specialty Start Date End Date Tushar Caballero DO [address] [facility] [place] [address] PCP - General Family Practice 07/31/15 Evaluator Transfer Students Relationship Specialty Start Date End Date Tushar Caballero DO [address] [facility] [place] [address] PCP - General Family Practice 07/31/15 Evaluator Transfer Students Relationship Specialty Start Date End Date Tushar Caballero, DO [address] [place] [address] PCP - General Family Practice 07/31/15 Evaluator Transfer Students Relationship Specialty Start Date End Date Tushar Caballero, DO [address] [place] [address] PCP - General Family Medicine 07/31/15 Evaluator Transfer Students Relationship Specialty Start Date End Date Tushar Caballero, DO [address] [place] [address] PCP - General Family Medicine 07/31/15 Evaluator Transfer Students Relationship Specialty Start Date End Date Tushar Caballero, DO [address] [place] [address] PCP - General Family Medicine 07/31/15 Evaluator Transfer Students Relationship Specialty Start Date End Date Tushar Caballero DO [address] [place] [address] PCP - General Family Medicine 07/31/15 Evaluator Transfer Students Relationship Specialty Start Date End Date Tushar Caballero DO [address] [place] [address] PCP - General Family Medicine 07/31/15 Evaluator Transfer Students Relationship Specialty Start Date End Date Tushar Caballero DO [address] [place] [address] PCP - General Family Medicine 07/31/15 Evaluator Transfer Students Relationship Specialty Start Date End Date Tushar Caballero DO [address] [place] [address] PCP - General Family Medicine 07/31/15 Evaluator Transfer Students Relationship Specialty Start Date End Date Tushar Caballero DO [address] [place] [address] PCP - General Family Medicine 07/31/15 Evaluator Transfer Students Relationship Specialty Start Date End Date Tushar Caballero DO [address] [facility] [place] [address] PCP - General Family Medicine 07/31/15 Evaluator Transfer Students Relationship Specialty Start Date End Date Tushar Caballero, DO [address] [place] [address] PCP - General Family Medicine 07/31/15 Evaluator Transfer Students Relationship Specialty Start Date End Date Tushar Caballero DO [address] [place] [address] PCP - General Family [facility] 07/31/15 Evaluator Transfer Students Relationship Specialty Start Date End Date Tushar Caballero, [address] [facility], [place] [id number] PCP - General Family Medicine 07/31/15 FOR RECORDS PERTAINING TO PATIENTS WHO ARE OR HAVE BEEN ENROLLED IN A CHEMICAL DEPENDENCY/SUBSTANCEABUSE PROGRAM, SOME INFORMATION MAY BE OMITTED. This clinical summary was aggregated from multiple sources. Caution should be exercised in using it in the provision of clinical care. This summary normalizes information from multiple sources, and as a consequence, information in this document may materially change the coding, format and clinical context of patient data. In addition, data may be omitted in some cases. CLINICAL DECISIONS SHOULD BE BASED ON THE PRIMARY CLINICAL RECORDS. [employer] provides no warranty or guarantee of the accuracy or completeness of information in this document.
--- NOTE | 2023-08-29 10:37 | CT_ITS ---
INDICATION: Kidney Stone EXAMINATION: CT ABDOMEN AND PELVIS WITHOUT CONTRAST - CT Abdomen And Pelvis W/O Contrast Injection TECHNIQUE: Helically acquired images were obtained of the abdomen and pelvis without oral or IV contrast. A radiation dose optimization technique was used for this scan. IV Contrast dosage and agent: None. Oral contrast: None. RADIATION DOSAGE (If Supplied By Facility): CTDIvol = ( 10.01 ) mGy, DLP = ( 477.81 ) mGycm COMPARISON: No relevant prior comparison study available FINDINGS: LOWER CHEST: Lung bases are clear. No cardiomegaly or pericardial effusion. LIVER: Mild hepatomegaly. 5 cm low-density lesion in the right lobe of the liver difficult to characterize and may represent cyst. Additional smaller low-density lesion/cyst. GALLBLADDER AND BILIARY TREE: No calcified gallstones. No gallbladder distension or wall edema. No intra- or extrahepatic biliary ductal dilation. PANCREAS: No focal cystic or solid mass. SPLEEN: Normal size without focal cystic or solid mass. ADRENAL GLANDS: No nodules. KIDNEYS AND URETERS: 3 mm nonobstructing stone in the lower pole of right kidney without evidence of right hydronephrosis. Left perinephric stranding and fluid. Few nonobstructing stones in the left kidney, the largest measures about 6 mm. Mild to moderate left hydronephrosis and hydroureter with multiple pelvic calcifications. 9 mm calcification consistent with stone in the left ureterovesical junction could represent 2 adjacent stones (axial image 14 series 2). Superimposed pyelonephritis cannot be excluded. PERITONEUM: No ascites or free air. No other fluid collection. BOWEL: No evidence of acute appendicitis. No stomach or bowel distension. No focal inflammatory change. LYMPH NODES: No enlarged mesenteric or retroperitoneal lymph nodes. VESSELS: Tortuosity of the abdominal aorta without evidence of aneurysm. URINARY BLADDER: Unremarkable. REPRODUCTIVE ORGANS: No pelvic masses. ABDOMINAL WALL: Probable tiny umbilical hernia containing fat. BONES: Degenerative changes of the spine. Right hip arthroplasty. CT/Abdomen/Pelvis without Cont IMPRESSION: 1. Moderate left hydronephrosis and hydroureter with perinephric stranding due to stones in the left ureterovesical junction as described above. 2. Nonobstructing stones in both kidneys. 3. Liver lesions difficult to characterize on this exam and may represent cysts. Electronically Signed: Valerio Mcneil MD at 11:59 EST ,
--- NOTE | 2023-08-29 10:38 | EX.ED.DYSGE1 ---
HPI History of Present Illness Chief Complaint: Flank Pain Informant: patient and family Narrative Narrative: 68-year-old female presenting to the emergency room with acute onset of left lower abdominal pain radiating to the flank. She states that earlier this morning she was awoken with the pain. She has had multiple bowel movements which she states is getting close to diarrhea . She denies any fever. No urinary symptoms. She notes that she has been diagnosed with stones in the kidney but they have never removed . She notes that yesterday she started taking a loyal/capsule for weight loss that she bought online. No reported fevers. She did have 1 small emesis this morning which she thought perhaps could be due to pain. No history of colitis or diverticulitis. Pain seems to wax and wane but has been relatively constant [facility] Medical History History of arthritis History of bursitis History of carpal tunnel syndrome History of polycystic ovarian disease History of skin cancer History of trigger finger Hypothyroidism Home Medications levothyroxine 100 mcg tablet (Levoxyl) 100 mcg PO DAILY 12/06/15 [History Last Taken 12/06/15] Omeprazole [Prilosec] 40 mg PO DAILY #30 caps 12/07/15 [Rx Last Taken Unknown] fluorouracil 5 % topical cream gm topical 06/06/21 [History Last Taken Unknown] Allergy/AdvReac Type Severity Reaction Status Date / Time No Known Allergies Allergy Verified 08/19/23 10:47 Family History Mother Arthritis CVA (cerebral vascular accident) Surgical History History of bunionectomy History of carpal tunnel release of both wrists History of dilation and curettage History of Mohs surgery for squamous cell carcinoma of skin History of thyroidectomy History of tonsillectomy and adenoidectomy History of total hip replacement History of tubal ligation Status post trigger finger release Social History Smoking Status: Never smoker alcohol intake: never substance use type: does not use what type of physical activity do you participate in: walking frequency: 3-4 times per week ROS ROS ED Constitutional Constitutional ED: Denies chills, fever(s) or weight loss Eyes Eyes: Denies change in vision or diplopia ENT ENT ED: Denies ear pain, rhinorrhea or sore throat Cardiovascular Cardiovascular: Denies chest pain, orthopnea, palpitations or racing heartbeat Respiratory/Chest Respiratory/Chest: Denies cough, dyspnea or orthopnea Gastrointestinal Gastrointestinal: Reports abdominal pain, nausea, vomiting and other Details: Multiple morning bowel movements today ; Denies diarrhea Genitourinary Genitourinary ED: Denies dysuria, hematuria or urinary frequency Musculoskeletal Musculoskeletal: Reports other Details: Left flank pain ; Denies arthralgias, myalgias or neck pain Integumentary Denies abscess or rash Neurologic Neurologic: Denies headache(s) or weakness Psychiatric Psychiatric: Denies anxiety, depression, suicidal ideation or suicidal thoughts Endocrine Endocrinology: Denies polydipsia, polyphagia or polyuria Allergic/Immunologic Allergic/Immunologic ED: Denies mouth swelling, tongue swelling or urticaria EXAM Physical Exam Narrative Exam Narrative: Patient appears very uncomfortable in the bed. Const Vital Signs: 08/29/23 10:21 08/29/23 10:28 08/29/23 12:33 Temperature 96.8 F L Temperature Source Temporal Pulse Rate 77 Respiratory Rate 16 16 16 Blood Pressure 153/80 H 171/83 H 146/71 H Blood Pressure Mean 104 112 96 Pulse Ox 100 98 98 Oxygen Delivery Method Room Air Room Air Room Air Positive well nourished and well developed General Appearance ED: well developed HEENT Reports normocephalic, head/scalp atraumatic and moist mucous membranes Eyes PERRL and EOMs intact bilaterally Neck no lymphadenopathy, supple and no JVD Resp normal respiratory effort and clear to auscultation bilaterally Cardio regular rate, regular rhythm and no murmurs GI Inspection: Negative for abdominal distention Auscultation: normoactive bowel sounds Palpation: soft and tender LLQ; Negative for guarding or rebound tenderness present Back/Spine no CVA tenderness and normal ROM Extremity normal to inspection General Extremety ED: Negative for edema General Extremity: Negative for edema Neuro oriented x3 and CN's II-XII intact bilaterally Sensorium / Orientation: alert Motor Exam: strength 5/5 throughout Psych mental status grossly normal Mood & Affect: Negative for depressed or tearful Skin no rashes or lesions noted and no wounds MDM MDM MDM Narrative Medical decision making narrative: Patient received morphine Toradol Zofran for pain. She also received IV fluids. White count returned at 21.2 hemoglobin 13.2 and a platelet count of 316. Glucose 163 creatinine 0.79 with a BUN of 16. Urinalysis demonstrates no overt infection. 0-5 red cells 0-5 white cells 1+ bacteria. This will be sent for cultures. Blood cultures will be obtained and the patient received a dose of Rocephin. She is now having some epigastric burning sensation. I will give her a GI cocktail and additional Zofran. I spoke with her and her daughter. She sees Dr. Strauss through [facility] [place]. I will reach out to them to see if we can transfer her there as we have no urology coverage at this institution currently. I did speak with Dr. Pisano covering urology. He recommends transfer to [facility] where he will see her. I spoke with the transfer line and they will get us a bed. History & Record Review Discussion w/independent historian: Patient and Family Additional record(s) reviewed:: Prior labs Lab Data Attestation: I reviewed the patient's lab results. Labs: Laboratory Results - last 24 hr 08/29/23 08/29/23 10:44 11:40 WBC 21.2 H RBC 4.42 Hgb 13.2 Hct 40.8 MCV 92.3 MCH 29.9 MCHC 32.4 RDW Std Deviation 41.7 RDW Coeff of Zenaida 12.3 Plt Count 316 MPV 10.0 Immature Gran % (Auto) 0.500 Neut % (Auto) 86.1 H Lymph % (Auto) 8.4 L Mccracken % (Auto) 4.5 Eos % (Auto) 0.1 Baso % (Auto) 0.4 Absolute Neuts (auto) 18.2 H Absolute Lymphs (auto) 1.78 Nucleated RBC % 0 Sodium 137 Potassium 3.5 Chloride 106 Carbon Dioxide 25.0 Anion Gap 6 BUN 16 Creatinine 0.79 Estim Creat Clear Calc 66.98 Est GFR (MDRD) Af Amer 92 Est GFR (MDRD) Non-Af 76 BUN/Creatinine Ratio 20.2 H Glucose 163 H Calcium 9.3 Total Bilirubin 0.60 Direct Bilirubin 0.14 AST 17 ALT 28 Alkaline Phosphatase 67 Total Protein 7.4 Albumin 3.8 Globulin 3.6 Lipase 22 Urine Color Yellow Urine Clarity Clear Urine pH 6.0 Ur Specific [place] 1.020 Urine Protein Negative Urine Glucose (UA) Normal Urine Ketones 150 A* Urine Occult Blood 150 H Urine Nitrite Negative Urine Bilirubin Negative Urine Urobilinogen Normal Ur Leukocyte Esterase 25 H Urine RBC 0-5 SEEN Urine WBC 0-5 SEEN Ur Squamous Epith Cells 0 SEEN Urine Bacteria 1+ Urine Mucus 0 SEEN Radiography Diagnostic Testing: Clinical Impression(s) from Imaging Studies Abdomen/Pelvis CT 08/29/23 10:37 IMPRESSION: 1. Moderate left hydronephrosis and hydroureter with perinephric stranding due to stones in the left ureterovesical junction as described above. 2. Nonobstructing stones in both kidneys. 3. Liver lesions difficult to characterize on this exam and may represent cysts. Electronically Signed: Valreio Mcneil MD at 11:59 EST , Management Discussion w/another healthcare provider: Crystal Inspector (Urology [facility] (Dr. Pisano)) and Other ([facility] Transfer Line) Discharge Plan Triage Chief Complaint: Flank Pain ED Provider: Desmond Brink Dx/Rx/DC Orders Clinical Impression: Hydronephrosis, Leukocytosis, Ureterolithiasis, Renal colic on left side Prescriptions: No Action fluorouracil 5 % cream topical Patient Comments: APPLY 2 TIMES A DAY TO FOREHEAD AND TEMPLES FOR 2 WEEKS,MAY STOP ... (REFER TO PRESCRIPTION NOTES). levothyroxine [Levoxyl] 100 MCG tablet 100 mcg PO DAILY Patient Comments: thryoid support Omeprazole [Prilosec] 40 MG capsule 40 mg PO DAILY Qty: 30 0RF Patient Comments: GASTRIC REFLUX Primary Care Provider: Tushar Henriquez Referrals: Tushar Henriquez DO [Primary Care Provider] -
[2023-08-29] MEDS: Ondansetron 4 MG/2 ML Vial IV ×2 (10:45→13:16)
[2023-08-29] MEDS: Morphine 4 MG/ML Syringe IV ×2 (10:45→13:44)
[2023-08-29] MEDS: Ketorolac 15 MG/ML Vial IV ×2 (10:45→14:46)
[2023-08-29] MEDS: 0.9% Normal Saline (1000mL) 1,000 ML 250 ML IV (10:45)
[2023-08-29 10:53] LABS: Absolute Lymphocyte Count 1.78 X10^3/uL (0.83-4.51); Absolute Neutrophil Count 18.2 X10^3/uL (2.0-7.7); Basophil# 0.09 X10^3/uL; Basophil% 0.4 % (0-1); Eosinophil# 0.02 X10^3/uL; Eosinophils% 0.1 % (0-5); Hematocrit 40.8 % (37-47); Hemoglobin 13.2 g/dL (12.0-15.0); Lymphocyte # 1.78 X10^3/ul (0.83-4.51); Lymphocyte % 8.4 % (19-41); Mean Corp Hgb Conc 32.4 g/dL (32-36); Mean Corpuscular Hgb 29.9 pg (27.0-32.0); Mean Corpuscular Volume 92.3 fL (81-99); Monocyte# 0.95 X10^3/uL; Monocyte% 4.5 % (0-10); NRBC Flagged by Analyzer 0 % (0-5); Neutrophil # 18.22 X10^3/uL (2.7-7.7); Neutrophil % 86.1 % (47-70); Platelet Count 316 K/mm3 (150-450); RBC Distribution Width CV 12.3 % (11.6-14.6); RBC Distribution Width SD 41.7 fl (35.1-43.9); Red Blood Count 4.42 M/mm3 (4.2-5.4); White Blood Count 21.2 K/mm3 (4.4-11.0)
[2023-08-29 11:10] LABS: AST(SGOT) 17 U/L (15-37); Alanine Aminotransfer ALT/SGPT 28 U/L (13-56); Albumin, Serum 3.8 g/dL (3.2-5.0); Alkaline Phosphatase 67 U/L (45-117); Anion Gap 6 (5-15); BUN 16 mg/dL (7-18); BUN/Creat Ratio 20.2 RATIO (10-20); Bilirubin, Direct 0.14 mg/dL (0.00-0.30); Calcium,Total 9.3 mg/dL (8.5-10.1); Chloride 106 mmol/L (98-107); Creatinine, Serum 0.79 mg/dL (0.55-1.02); EST Glomerular Filtration Rate 76 mL/min (>60); Est Glom Filt Rate - Afr Amer 92 mL/min (>60); Estimated Creatinine Clearance 66.98 ml/min; Globulin 3.6 g/dL (2.2-4.2); Glucose 163 mg/dL (74-106); Lipase 22 U/L (13-75); Potassium 3.5 mmol/L (3.5-5.1); Protein, Total 7.4 g/dL (6.4-8.2); Sodium Level 137 mmol/L (136-145)
[2023-08-29 11:57] LABS: Mucous, Urine 0 SEEN /hpf (<or=2+); Squamous Epithelial Cells - UA 0 SEEN /hpf (5-10)
[2023-08-29 11:58] LABS: Color, Urine Yellow (Yellow); Glucose, Dipstick Normal (Normal); Leukocyte Esterase-Dipstick 25 /ul (Negative); Nitrite-Dipstick Negative (Negative); Occult Blood-Urine 150 /ul (Negative); Protein-Dipstick Negative (Negative); Urine Bilirubin Dipstick Negative (Negative); Urine Clarity Clear (Clear); Urine Urobilinogen Normal (Normal)
[2023-08-29 12:04] LABS: Ketone-Dipstick 150 mg/dl (Negative)
[2023-08-29 12:19] LABS: Bacteria 1+ /hpf (None Seen); Red Blood Cells-Urine 0-5 SEEN /hpf (0-5); White Blood Cells 0-5 SEEN /hpf (0-5)
[2023-08-29 12:33] VITALS: BP 146/71; RESP 16; O2SAT 98
[2023-08-29] MEDS: Mag Hydrox/Al Hydrox/Simeth 30 ML UDC PO (13:16)
[2023-08-29] MEDS: Ceftriaxone 1 GM/50 ML BAG IV (13:44)
[2023-08-29 14:00] VITALS: BP 142/65; PULSE 82; RESP 16; O2SAT 98
--- NOTE | 2023-08-29 14:58 | NURSING ---
[id number] CALLED ASAEL LONG
--- NOTE | 2023-08-29 15:06 | NURSING ---
ASAEL DIAZ [id number] NURSE TO NURSE [phone]
--- NOTE | 2023-08-29 15:11 | NURSING ---
CALLED SQUAD, ETA IS 20 MIN
[2023-08-29 15:25] VITALS: BP 142/65; PULSE 80; RESP 16; O2SAT 97
--- NOTE | 2023-08-29 16:13 | ED.RN ---
Report called the HENRY Solomon at [facility]
== END 2023-08-29 16:14 | disposition short-term general hospital (02) ==
PROVIDERS: Emergency Provider Emergency Medicine; PCP Student in an Organized Health Care Education/Training Program; Visit Provider Emergency Medicine
DX: N13.2 Hydronephrosis with renal and ureteral calculous obstruction (principal); N23 Unspecified renal colic; D72.829 Elevated white blood cell count, unspecified; K76.9 Liver disease, unspecified
CPT/HCPCS: 74176; 80048; 80076; 81001; 83690; 85025; 87040; 87077; 87086; 87088; 87186; 96361; 96365; 96375; 96376; 99284; J7030; A4216; J2405

== ENCOUNTER → 2024-04-23 | Outpatient (CLI) | payer MEDICARE, OTHER, SELFPAY ==
--- NOTE | 2024-04-23 09:52 | CT_ITS ---
STUDY: CT Lower Extremity W/O Contrast Injection 04/24/2024 9:21 PM REASON FOR EXAM: Female, 68 years old. PREOP Individualized dose optimization techniques were used for this CT. TECHNIQUE: PREOP KALYN protocol right COMPARISON: No priors for comparison. FINDINGS: A dariela was placed along the lateral aspect of the patient''s lower extremity. CT scans were obtained over the hip, knee, and ankle, separately. Degenerative findings of the right knee. No acute findings of the level of the ankle. Calcaneal spur. Achilles spur. CT/Extremity Lower without Contra IMPRESSION: The images will be utilized by the surgical prosthesis hand stemmer for measurement and planning purposes.. Electronically Signed: Bryson Hughes MD at 21:23 EDT ,
[2024-04-23 11:11] LABS: Absolute Lymphocyte Count 2.77 X10^3/uL (0.83-4.51); Absolute Neutrophil Count 6.2 X10^3/uL (2.0-7.7); Basophil# 0.07 X10^3/uL; Basophil% 0.7 % (0-1); Eosinophil# 0.37 X10^3/uL; Eosinophils% 3.7 % (0-5); Hematocrit 39.1 % (37-47); Hemoglobin 12.5 g/dL (12.0-15.0); Lymphocyte # 2.77 X10^3/ul (0.83-4.51); Lymphocyte % 27.9 % (19-41); Mean Corpuscular Hgb 30.2 pg (27.0-32.0); Mean Corpuscular Volume 94.4 fL (81-99); Mean Platelet Vol. 10.3 fl (6.2-12.0); Monocyte# 0.51 X10^3/uL; Monocyte% 5.1 % (0-10); NRBC Flagged by Analyzer 0 % (0-5); Neutrophil # 6.19 X10^3/uL (2.7-7.7); Neutrophil % 62.3 % (47-70); Platelet Count 338 K/mm3 (150-450); RBC Distribution Width CV 12.4 % (11.6-14.6); RBC Distribution Width SD 43.1 fl (35.1-43.9); Red Blood Count 4.14 M/mm3 (4.2-5.4); White Blood Count 9.9 K/mm3 (4.4-11.0)
[2024-04-23 11:33] LABS: Albumin, Serum 3.6 g/dL (3.2-5.0); Anion Gap 5 (5-15); BUN 29 mg/dL (7-18); BUN/Creat Ratio 52.3 RATIO (10-20); Calcium,Total 9.4 mg/dL (8.5-10.1); Chloride 106 mmol/L (98-107); Creatinine, Serum 0.55 mg/dL (0.55-1.02); EST Glomerular Filtration Rate 115 mL/min (>60); Est Glom Filt Rate - Afr Amer 139 mL/min (>60); Glucose 93 mg/dL (74-106); Potassium 4.3 mmol/L (3.5-5.1); Sodium Level 139 mmol/L (136-145)
== END | disposition home or self-care (01) ==
PROVIDERS: PCP Student in an Organized Health Care Education/Training Program; Referring Provider Specialist; Visit Provider Specialist
DX: Z01.818 Encounter for other preprocedural examination (principal); M23.8X1 Other internal derangements of right knee
CPT/HCPCS: 36415; 73700; 80048; 82040; 85025

== ENCOUNTER → 2024-04-25 | Outpatient (CLI) | payer MEDICARE, OTHER, SELFPAY ==
--- NOTE | 2024-04-25 08:11 | EKG12_ITS ---
Test Reason : PRE OP Blood Pressure : / mmHG Vent. Rate : 095 BPM Atrial Rate : 095 BPM P-R Int : 150 ms QRS Dur : 086 ms QT Int : 364 ms P-R-T Axes : 046 -05 -03 degrees QTc Int : 457 ms Normal sinus rhythm Left ventricular hypertrophy Abnormal ECG Confirmed by Phong Newsome ([id number]), supervising editor trailer LEYDI GALVIN ([id number]) on 04/25/2024 1:17:29 PM Referred By: Jose Carbajal Confirmed By:Phong Newsome
== END | disposition home or self-care (01) ==
LOC: PSN 08:07
PROVIDERS: PCP Student in an Organized Health Care Education/Training Program; Referring Provider Specialist; Visit Provider Specialist
DX: Z01.810 Encounter for preprocedural cardiovascular examination (principal)
CPT/HCPCS: 93005

== ENCOUNTER → 2024-06-27 | Outpatient (CLI) | payer MEDICARE, OTHER, SELFPAY ==
--- NOTE | 2024-06-27 11:06 | VDLE_ITS ---
Reason For Study: Swelling RLE RIGHT LEFT GSV is normal. CFV is compressible, spontaneous, phasic, CFV is compressible, spontaneous, phasic, competent, and demonstrates normal competent and demonstrates normal augmentation. augmentation. FV is compressible, spontaneous, phasic, competent and demonstrates normal augmentation. POP V is compressible, spontaneous, phasic, competent and demonstrates normal augmentation. T/P Trunk is compressible. PTV is compressible. RT PerV is compressible. Procedure This is a venous duplex using B-mode, color flow and spectral Doppler. Exam performed in department. A preliminary report was called and/or faxed to Dr. Carbajal. VL/Venous Duplex US, Unilateral Interpretation Summary Deep veins of the right lower extremity are patent and compressible segmentally . There is no evidence of right lower extremity deep vein thrombosis. The right great sapheno us vein appears patent and compressible segmentally. Ordering Physician: Jose Carbajal Referring Physician: Tushar Henriquez Performed By: Chichi Mcpherson RDCS, RVT
== END | disposition home or self-care (01) ==
LOC: CVS 10:55
PROVIDERS: PCP Student in an Organized Health Care Education/Training Program; Referring Provider Specialist; Visit Provider Specialist
DX: R22.41 Localized swelling, mass and lump, right lower limb (principal)
CPT/HCPCS: 93971

== ENCOUNTER → 2024-08-10 | Outpatient (CLI) | payer MEDICARE, OTHER, SELFPAY ==
[2024-08-10 12:40] LABS: CRP < 2.90 mg/L (0.0-3.0)
[2024-08-10 12:54] LABS: Erythrocyte Sedimentation Rate < 1 mm/hr (0-30)
[2024-08-10 12:59] LABS: Absolute Lymphocyte Count 2.48 X10^3/uL (0.83-4.51); Absolute Neutrophil Count 3.8 X10^3/uL (2.0-7.7); Basophil# 0.05 X10^3/uL; Basophil% 0.7 % (0-1); Eosinophil# 0.28 X10^3/uL; Hematocrit 37.5 % (37-47); Hemoglobin 12.2 g/dL (12.0-15.0); Lymphocyte # 2.48 X10^3/ul (0.83-4.51); Mean Corp Hgb Conc 32.5 g/dL (32-36); Mean Corpuscular Hgb 30.9 pg (27.0-32.0); Mean Corpuscular Volume 94.9 fL (81-99); Mean Platelet Vol. 10.4 fl (6.2-12.0); Monocyte# 0.44 X10^3/uL; Monocyte% 6.2 % (0-10); NRBC Flagged by Analyzer 0 % (0-5); Neutrophil # 3.82 X10^3/uL (2.7-7.7); Platelet Count 330 K/mm3 (150-450); RBC Distribution Width CV 12.6 % (11.6-14.6); RBC Distribution Width SD 43.8 fl (35.1-43.9); Red Blood Count 3.95 M/mm3 (4.2-5.4); White Blood Count 7.1 K/mm3 (4.4-11.0)
== END | disposition home or self-care (01) ==
LOC: MTLAB 10:05
PROVIDERS: PCP Student in an Organized Health Care Education/Training Program; Referring Provider Specialist; Visit Provider Specialist
DX: T84.84XD Pain due to internal orthopedic prosthetic devices, implants and grafts, subsequent encounter (principal)
CPT/HCPCS: 36415; 85025; 85652; 86140